=== PATIENT | male | born 1990 | race Caucasian/White ===

== ENCOUNTER 2016-10-15 21:27 | Emergency (ER) | payer BC, OTHER ==
[~2016-10-15] VITALS: Ht 175.3 cm; Wt 64.0 kg
[~2016-10-15 21:27] MED LIST: IBUP-232 PO; Z.0.NO CURRENT MEDS
[2016-10-15 21:29] VITALS: BP 120/76; PULSE 92; RESP 14; TEMP 97.7; O2SAT 97
[2016-10-15] MEDS ORDERED: SUBO8MIS SL (22:01)
[2016-10-15] MEDS ORDERED: CEPH-460 PO (22:26)
[2016-10-15] MEDS ORDERED: PERM5CRE TOPICAL (22:26)
[2016-10-15] MEDS ORDERED: MUPI2%T TOPICAL (22:26)
[2016-10-15] MEDS ORDERED: diphenhydrAMINE HCL 50 MG/ML VIAL IM ONE (22:30)
--- NOTE | 2016-10-15 22:32 | PD ---
HPI Chief Complaint: Psychiatric Symptoms Time Seen by Provider: 22:20 Travel History International Travel<30 days: No Contact w/Intl Traveler<30days: No Traveled to known affect area: No History of Present Illness HPI This is a 25-year-old male who presents for evaluation of a pruritic rash. He reports that 2 months ago he moved into an old house. He reports that over the course the past 1.5 weeks he has developed a pruritic rash. The pruritic rash primarily involves the extremities, seems to spare the neck, face, torso. He has been scratching at the rash. He reports that he has seen numerous "white bugs" inside of his house. He was also initially concerned that there may be a rat infestation in his house. He reports that an steel roller inspected the house today and found no rat's but said that there was some type of bug infestation. The Patient has no other complaints at this time. PFSH Past Medical History ADHD: No Cancer: No Cardiovascular Problems: No Diabetes: No Psychiatric: No Seizures: No Thyroid Disease: No Past Surgical History Other Surgery: No Social History Alcohol Use: Yes (occassionally) Tobacco Use: Yes (1ppd) Substance Use: Yes (marjuana; hx of meth; xanax) Allergies-Medications (Allergen,Severity, Reaction): Coded Allergies: No Known Allergies (Verified , 10/15/16) Reported Meds & Prescriptions Reported Meds & Active Scripts Active Bactroban Topical (Mupirocin) 2 % Cream 1 Applic TOPICAL BID 7 Days Keflex (Cephalexin) 500 Mg Cap 500 Mg PO Q8H 7 Days Permethrin Topical (Permethrin) 5% Cream 1 Applic TOPICAL ONCE Reported Suboxone Sublingual Film (Buprenorphine-Naloxone Sublingual Film) 8-2 Mg Film 1 Film SL DAILY Unique ID number required: Review of Systems General / Constitutional: No: Fever, Chills Skin: Positive Rash, Positive Itching Physical Exam Narrative GENERAL: Well-developed well-nourished male in no acute distress SKIN: Warm and dry. On the arms and legs the patient has excoriated papular lesions. There is mild erythema surrounding some of the lesions. There are no vesicles, no pustules, no intraoral lesions, no macules, no purpura, no petechiae. No abscess formation. HEAD: Atraumatic. Normocephalic. EYES: Pupils equal and round. No scleral icterus. No injection or drainage. ENT: No nasal bleeding or discharge. Mucous membranes pink and moist. NECK: Trachea midline. No JVD. CARDIOVASCULAR: Regular rate and rhythm. No murmur appreciated. RESPIRATORY: No accessory muscle use. Clear to auscultation. Breath sounds equal bilaterally. NEUROLOGICAL: Awake and alert. No obvious cranial nerve deficits. Motor grossly within normal limits. Normal speech. PSYCHIATRIC: Appropriate mood and affect; insight and judgment normal. Data Data Last Documented VS Vital Signs Date Time Temp Pulse Resp B/P Pulse Ox O2 Delivery O2 Flow Rate FiO2 10/15/16 21:29 97.7 92 14 120/76 97 Room Air Orders Diphenhydramine Inj (Benadryl Inj) (10/15/16 22:30) MDM Medical Decision Making Medical Screen Exam Complete: Yes Emergency Medical Condition: Yes Medical Record Reviewed: Yes Differential Diagnosis Excoriated bug bites, allergic contact dermatitis, scabies, bed bugs, fleas, atopic dermatitis, cellulitis, folliculitis, viral exanthem Narrative Course 25-year-old male presents for evaluation of pruritic excoriated papular lesions primarily on the extremities, seems to spare the torso and face, for the past 1.5 weeks. Of note, he did move into a new residence, he describes it as an old house, 2 months ago. He describes an infestation of "white bugs." On examination he has excoriated papular lesions on the extremities. The plan is to treat the patient with permethrin cream for possible scabies infestation. He will also be given prescriptions for Keflex, Bactroban. Recommended over-the -counter antihistamines for itching. He is stable for discharge. Diagnosis Primary Impression: Pruritic rash Additional Instructions: Avoid scratching. Take Benadryl [id number] for itching. Do not drive, drink alcohol when taking Benadryl. Use the medications as prescribed. Have the steel roller treat the house infestation. Follow-up with primary care physician as needed. Return for any emergent medical conditions. Med/Other Pt SpecificInfo: Prescription(s) given Scripts Mupirocin Topical (Bactroban Topical)2 % Cream1 Applic TOPICAL BID 7 Days Ref 0 Prov:Ana Mitchell MD 10/15/16 Cephalexin (Keflex)500 Mg Tcs086 Mg PO Q8H 7 Days Ref 0 Prov:Ana Mitchell MD 10/15/16 Permethrin Topical 5% Cream1 Applic TOPICAL ONCE #1 TUBE Ref 1 Prov:Ana Mitchell MD 10/15/16 Disposition: 01 DISCHARGE HOME Condition: Stable Corwin Rinaldi Oct 15, 2016 22:32
== END 2016-10-15 23:07 | disposition home or self-care (01) ==
LOC: NEPA 21:27
DX: R21 Rash and other nonspecific skin eruption (principal); F17.210 Nicotine dependence, cigarettes, uncomplicated
CPT/HCPCS: 96372; 99283; J1200

== ENCOUNTER 2016-10-23 14:36 | Emergency (ER) | payer OTHER ==
[~2016-10-23] VITALS: Ht 175.3 cm; Wt 60.0 kg
[~2016-10-23 14:36] MED LIST changes: +CEPH-460 PO; -IBUP-232 PO; +MUPI2%T TOPICAL; +PERM5CRE TOPICAL; +SUBO8MIS SL; -Z.0.NO CURRENT MEDS
[2016-10-23 14:37] VITALS: BP 167/91; PULSE 71; RESP 18; TEMP 98; O2SAT 97
--- NOTE | 2016-10-23 15:44 | PD ---
HPI Chief Complaint: Skin Problem Time Seen by Provider: 15:23 Travel History International Travel<30 days: No Contact w/Intl Traveler<30days: No Traveled to known affect area: No History of Present Illness HPI 25-year-old male presents to the emergency department with concern that he thinks he has a cutaneous filariasis in his skin and it is getting close to his eyes. He was seen here about a week ago and was told he had scabies and was treated with the cream and antibiotics which he has used as prescribed. He had a area on his nose that he said he squeezed this morning and a large blue nematode came out of it and slithered across his face. He said it was very fast and then disappeared into another area of his skin on his right cheek. He says he can currently see another large blue nematode in an area to his left nostril that he doesn't want to squeeze until I can see it come out. He reports having a rat infestation in his house that brought mites also. He reports seeing mites in his hands and face and they migrate from area to area on his hands and face. The rash is itchy. He reports improvement in the rash since he was seen last. He denies fever, chills, nausea, vomiting. He has had a acquisition lead come out to his house and was told there were no mites seen and his house did not need to be treated. Patient denies illicit drug use. Reports tobacco use. Reports taking Suboxone twice daily. Denies allergies. Denies psychiatric history. Denies other significant past medical history. No other modifying factors or associated signs and symptoms. History Past Medical Histgory Medical History: Denies Significant Hx Hx Cancer: No Social History Alcohol Use: Yes (occassionally) Tobacco Use: Yes (1ppd) Allergies-Medications (Allergen,Severity, Reaction): Coded Allergies: No Known Allergies (Verified , 10/23/16) Reported Meds & Prescriptions Reported Meds & Active Scripts Active Bactroban Topical (Mupirocin) 2 % Cream 1 Applic TOPICAL BID 7 Days Keflex (Cephalexin) 500 Mg Cap 500 Mg PO Q8H 7 Days Permethrin Topical (Permethrin) 5% Cream 1 Applic TOPICAL ONCE Reported Suboxone Sublingual Film (Buprenorphine-Naloxone Sublingual Film) 8-2 Mg Film 1 Film SL DAILY Unique ID number required: Review of Systems Except as stated in HPI: all other systems reviewed are Neg Physical Exam Narrative GENERAL: Well-nourished, well-developed male patient, in no acute distress; afebrile, nontoxic-appearing SKIN: Warm and dry. Multiple scabbed lesions to face, bilateral upper extremities, and bilateral lower extremities that are without erythema, edema, drainage. No blue nematode noted to the left nostril when the area was squeezed ; the area is without erythema, edema, drainage, lesion. HEAD: Atraumatic. Normocephalic. EYES: Pupils equal and round at 5mm. No scleral icterus. No injection or drainage. ENT: Mucosa pink and moist. Airway patent. NECK: Trachea midline. CARDIOVASCULAR: Regular rate and rhythm. No murmur appreciated. RESPIRATORY: No accessory muscle use. Breath sounds clear and equal bilaterally. No retractions or tachypnea. GASTROINTESTINAL: Flat. MUSCULOSKELETAL: No obvious deformities. No clubbing. No cyanosis. No edema. NEUROLOGICAL: Awake and alert. Oriented 3. No obvious cranial nerve deficits. Motor grossly within normal limits. Normal speech. PSYCHIATRIC: Appropriate mood and affect; insight and judgment normal. Data Data Last Documented VS Vital Signs Date Time Temp Pulse Resp B/P Pulse Ox O2 Delivery O2 Flow Rate FiO2 10/23/16 14:37 98.0 71 18 167/91 97 Room Air [facility] Medical Screen Exam Complete: Yes Emergency Medical Condition: No Differential Diagnosis bedbugs, scabies, picking disorder, Delusional parasitosis Narrative Course 25-year-old male with a periodic rash to his face, bilateral upper and lower extremities. He was seen here on October 15and diagnosed with a periodic rash which was treated with permethrin cream and Keflex. The patient has been using as prescribed. The patient now is concerned that he has cutaneous filariasis and his skin and concern of blue nematodes that he is able to squeeze out of lesions from his face. Patient takes Suboxone daily. He denies illicit drug use. Denies psychiatric history. He is afebrile and in no acute distress. He denies fever, chills, nausea, vomiting. Reports improvement in the current rash. Instructed the patient to follow up with dermatology. Vital signs are stable and the patient is stable for outpatient follow-up and treatment. The patient has no urgent or emergent medical complaints. There is no emergent or urgent medical need at this time. I instructed the patient to follow up with their primary care provider. A medical screening exam was performed: At the time of evaluation the presenting medical condition was determined not to be of an emergent nature. The patient was given the option of receiving additional care, but declined. Patient was given options for additional community resources from which to obtain care. The Patient Has Been advised to seek medical attention for their presenting complaint. The patient has been advised to return to the ER at any time if an emergent condition develops. Primary Impression: Encounter for medical screening examination Condition: Stable Barbara Alonso [facility] Oct 23, 2016 15:43
== END 2016-10-23 15:35 | disposition left against medical advice (07) ==
LOC: NEPB 14:36
DX: R21 Rash and other nonspecific skin eruption (principal)
CPT/HCPCS: 99281

== ENCOUNTER 2016-12-07 12:11 | Emergency (ER) | payer OTHER ==
[~2016-12-07] VITALS: Ht 177.8 cm; Wt 57.0 kg
[2016-12-07 12:14] VITALS: BP 133/92; PULSE 89; TEMP 97.6; O2SAT 99
--- NOTE | 2016-12-07 14:03 | PD ---
HPI Chief Complaint: Skin Problem Time Seen by Provider: 14:01 Travel History International Travel<30 days: No Contact w/Intl Traveler<30days: No Traveled to known affect area: No History of Present Illness HPI 26-year-old male presents to the emergency department with complaint of nematodes in his nostrils and his eyes. He was seen a couple months ago for the same complaint and says his symptoms have persisted since he was seen last, here at [facility]. I saw this patient at the end of September for the same complaint. He says he can see the nematodes crawling in the sides of his eyes. He says he can remove the nematodes from both of his nostrils with tweezers because there are 100s of them. Last time he was here he was complaining of mites in his hands. He says he has stopped picking at his hands, as I told him to, and the scabs have healed over. He has no complaints and Mites at this time. His mother presents at the bedside also. His mother states she has also seen the nematodes that he pulls from his nostrils on bathroom counter. Patient admits to IV drug use within the last month. Reports marijuana use. He has not followed up outpatient. He does have a dermatology appointment December 24. Has tried [id number] topical medications with no relief of symptoms. He denies fever, chills, nausea, vomiting. Denies suicidal or homicidal ideations. Denies auditory or visual hallucinations. No known allergies. No other modifying factors or associated signs and symptoms. History Past Medical Histgory Hx Cancer: No Social History Alcohol Use: Yes (occassionally) Tobacco Use: Yes (1ppd) Allergies-Medications (Allergen,Severity, Reaction): Coded Allergies: No Known Allergies (Verified , 12/07/16) Reported Meds & Prescriptions Reported Meds & Active Scripts Active Bactroban Topical (Mupirocin) 2 % Cream 1 Applic TOPICAL BID 7 Days Keflex (Cephalexin) 500 Mg Cap 500 Mg PO Q8H 7 Days Permethrin Topical (Permethrin) 5% Cream 1 Applic TOPICAL ONCE Reported Suboxone Sublingual Film (Buprenorphine-Naloxone Sublingual Film) 8-2 Mg Film 1 Film SL DAILY Unique ID number required: Review of Systems Except as stated in HPI: all other systems reviewed are Neg Physical Exam Narrative GENERAL: Well-nourished, well-developed male patient, in no acute distress; afebrile, nontoxic-appearing SKIN: Warm and dry. Multiple scabbed lesions to face without erythema, edema, drainage. No nematodes or any other living organism noted to bilateral eyes or nostrils. Dorsal aspect of bilateral hands with multiple healed circular scars. HEAD: Atraumatic. Normocephalic. EYES: Pupils equal and round at 4 mm with brisk reaction. No scleral icterus. No injection or drainage. ENT: Mucosa pink and moist. No erythema or exudates. No uvular edema. No uvular , palatal, or tonsillar deviation. Airway patent. Nasal turbinates appear normal without nasal blood, purulent drainage or septal hematoma. NECK: Trachea midline. No lymphadenopathy. CARDIOVASCULAR: Regular rate and rhythm. No murmur appreciated. RESPIRATORY: No accessory muscle use. Breath sounds clear and equal bilaterally. No retractions or tachypnea. GASTROINTESTINAL: Abdomen soft, non-tender, nondistended. Positive bowel sounds. No hepato-splenomegaly, or palpable masses. No guarding. MUSCULOSKELETAL: No obvious deformities. No clubbing. No cyanosis. No edema. NEUROLOGICAL: Awake and alert. Oriented 3. No obvious cranial nerve deficits. Motor grossly within normal limits. Normal speech. PSYCHIATRIC: Appropriate mood. Data Data Last Documented VS Vital Signs Date Time Temp Pulse Resp B/P Pulse Ox O2 Delivery O2 Flow Rate FiO2 12/07/16 12:14 97.6 89 133/92 99 MDM Medical Screen Exam Complete: Yes Emergency Medical Condition: No Differential Diagnosis Delusional parasitosis, picking disorder, scabies, psychosis Narrative Course This is a 26-year-old male that I thought the end of September for a similar complaint. He is complaining of nematodes in his eyes and coming out of his nostrils. Again there is nothing seen on physical exam. Physical exam is unremarkable. The patient is admitted IV drug use and marijuana use. He denies suicidal or homicidal ideations. Denies hallucinations. 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 I recommended the patient to follow-up with psychiatry outpatient, and to follow up with his scheduled dermatology appointment December 24. The patient and his mother both verbalized understanding and agreement with treatment plan. Vital signs are stable and the patient is stable for outpatient follow-up and treatment. The patient has no urgent or emergent medical complaints. There is no emergent or urgent medical need at this time. I instructed the patient to follow up with their primary care provider. A medical screening exam was performed: At the time of evaluation the presenting medical condition was determined not to be of an emergent nature. The patient was given the option of receiving additional care, but declined. Patient was given options for additional community resources from which to obtain care. The Patient Has Been advised to seek medical attention for their presenting complaint. The patient has been advised to return to the ER at any time if an emergent condition develops. Primary Impression: Encounter for medical screening examination Condition: Stable Barbara Alonso Dec 07, 2016 14:03
== END 2016-12-07 14:18 | disposition left against medical advice (07) ==
LOC: NEPB 12:11
DX: F22 Delusional disorders (principal); F12.20 Cannabis dependence, uncomplicated; F17.210 Nicotine dependence, cigarettes, uncomplicated
CPT/HCPCS: 99281

== ENCOUNTER 2016-12-07 21:28 | Emergency (ER) | payer OTHER ==
[~2016-12-07] VITALS: Ht 175.3 cm; Wt 56.0 kg
[2016-12-07 21:30] VITALS: BP 135/84; PULSE 88; RESP 16; TEMP 97.7; O2SAT 99
--- NOTE | 2016-12-07 22:27 | PD ---
HPI Chief Complaint: Foreign Body Time Seen by Provider: 22:00 Travel History International Travel<30 days: No Contact w/Intl Traveler<30days: No Traveled to known affect area: No History of Present Illness HPI Patient comes into the emergency for evaluation of possible foreign body in his naris. Patient states he was seen here earlier today for same was told there was nothing to be seen. Patient states shortly after leaving he saw something come out of his nose and took a picture of it. Patient denies any pain with this, fevers, nausea, vomiting, or headaches. Patient states he is being treated by a hospital intern for unknown parasite. History Past Medical Histgory Hx Cancer: No Social History Alcohol Use: Yes (occassionally) Tobacco Use: Yes (1ppd) Allergies-Medications (Allergen,Severity, Reaction): Coded Allergies: No Known Allergies (Verified , 12/07/16) Reported Meds & Prescriptions Reported Meds & Active Scripts Active Bactroban Topical (Mupirocin) 2 % Cream 1 Applic TOPICAL BID 7 Days Keflex (Cephalexin) 500 Mg Cap 500 Mg PO Q8H 7 Days Permethrin Topical (Permethrin) 5% Cream 1 Applic TOPICAL ONCE Reported Suboxone Sublingual Film (Buprenorphine-Naloxone Sublingual Film) 8-2 Mg Film 1 Film SL DAILY Unique ID number required: Review of Systems Except as stated in HPI: all other systems reviewed are Neg Physical Exam Narrative GENERAL: Well-developed, well nourished, in no acute distress, and non-ill appearing. SKIN: Warm and dry. HEAD: Atraumatic. Normocephalic. EYES: Pupils equal and round. EOMI. No scleral icterus. No injection or drainage. ENT: No nasal bleeding or discharge. Mucous membranes pink and moist. Bilateral ear canals was examined using a nasal speculum with visualization of normal sinus anatomy. No foreign body appreciated. NECK: Trachea midline. Supple. No nuclear rigidity. RESPIRATORY: No accessory muscle use. No respiratory distress. MUSCULOSKELETAL: No obvious deformities. No clubbing. No cyanosis. No edema. Full range of motion. NEUROLOGICAL: Awake and alert. No obvious cranial nerve deficits. Motor grossly within normal limits. Normal speech. PSYCHIATRIC: Appropriate mood and affect; insight and judgment normal. Data Data Last Documented VS Vital Signs Date Time Temp Pulse Resp B/P Pulse Ox O2 Delivery O2 Flow Rate FiO2 12/07/16 21:30 97.7 88 16 135/84 99 MDM Medical Screen Exam Complete: Yes Emergency Medical Condition: No Narrative Course Follow-up patient took of his nose when he thought something was coming out of his nose appears normal sinus bogginess. History and physical exam findings are not consistent with an emergent medical condition. He was given the option of receiving additional care, but has declined. Therefore the appropriate counseling recommendations were discussed with the patient and he was instructed to follow-up with his primary care physician as soon as possible for reevaluation. Patient was also informed of community resources from which he can obtain additional care. He is agreeable and verbalizes an understanding of the proposed plan. The patient states he will immediately return to the emergency department if his current complaints do not improve, new symptoms arise, or emergent condition develops. Patient ambulated out of the emergency department without difficulty. Primary Impression: Encounter for medical screening examination Disposition: [facility]-ED USE ONLY Condition: Choco Koenig Dec 07, 2016 22:27
== END 2016-12-07 22:38 | disposition left against medical advice (07) ==
LOC: NEPB 21:28
DX: Z76.89 Persons encountering health services in other specified circumstances (principal)
CPT/HCPCS: 99281

== ENCOUNTER 2017-08-03 09:01 | Observation (INO) | payer SELFPAY ==
[~2017-08-03] VITALS: Ht 177.8 cm; Wt 60.0 kg
[2017-08-03] VITALS (13 sets, daily range): BP systolic 97–156; BP diastolic 55–79; PULSE 64–88; RESP 16–18; TEMP 98.1–98.7; O2SAT 98–99
[2017-08-03] MEDS ORDERED: IOHEXOL 350 MG/ML 10 ML VIAL (for RAD DIAG) IVCONTRAST ONE (09:02)
[2017-08-03] MEDS ORDERED: SODIUM CHLOR 0.9% 1000 ML INJ 1,000 ML IV ONE (09:15)
[2017-08-03] MEDS ORDERED: SODIUM CHLORIDE 0.9% FLUSH 10 ML FLUSH IVF PRN (09:15)
[2017-08-03] MEDS ORDERED: methylPREDNISolone SOD SUCC 125 MG/2 ML VIAL IV PUSH ONE (09:15)
--- NOTE | 2017-08-03 09:21 | PD ---
HPI Chief Complaint: GI Complaint Time Seen by Provider: 09:08 Travel History International Travel<30 days: No Contact w/Intl Traveler<30days: No Traveled to known affect area: No History of Present Illness HPI Patient is a 26-year-old male with history of hepatitis C who presents to emergency room with multiple complaints. Patient reports that since yesterday, he has not been feeling well. Patient reports that he has a productive cough, congestion, reports that he was able to go to sleep last night but woke up feeling nauseous and ended up vomiting multiple times. Patient reports that he has been having subjective fevers and chills, reports that he has had increased chest congestion, reports shortness of breath and chest pain which is sharp and stabbing in nature and exacerbated with deep inspiration. Patient denies any sick contacts, denies any recent travels or trips. Patient does endorse that he is a smoker, he also is an IV drug abuser, reports that he last used IV heroin this morning. Patient last used cocaine 2 days ago. PFSH Past Medical History ADHD: No Cancer: No Cardiovascular Problems: No Diabetes: No Hepatitis: Yes (c) Psychiatric: No Immunizations Current: Yes Seizures: No Thyroid Disease: No Tetanus Vaccination: < 5 Years Past Surgical History Surgical History: No Previous Surgery Other Surgery: No Social History Alcohol Use: Yes (occassionally) Tobacco Use: Yes (1ppd) Substance Use: Yes (heroin this am) Allergies-Medications (Allergen,Severity, Reaction): Coded Allergies: No Known Allergies (Verified Adverse Reaction, Unknown, 08/03/17) Reported Meds & Prescriptions Reported Meds & Active Scripts Active Review of Systems General / Constitutional: Positive: Fever, Chills Eyes: No: Visual changes HENT: No: Headaches, Sore Throat, Neck Pain, Masses Cardiovascular: No: Chest Pain or Discomfort, Tachycardia, Syncope, Dyspnea on exertion Respiratory: Positive: Cough, Shortness of Breath Gastrointestinal: Positive: Nausea, Vomiting, Abdominal Pain Genitourinary: No: Dysuria Musculoskeletal: No: Pain Skin: No Rash Neurologic: No: Weakness, Headache Psychiatric: No: Depression Endocrine: No: Polydipsia Hematologic/Lymphatic: No: Easy Bruising Physical Exam Narrative GENERAL: Mild distress SKIN: Focused skin assessment warm/dry. HEAD: Atraumatic. Normocephalic. EYES: Pupils equal and round. No scleral icterus. No injection or drainage. ENT: No nasal bleeding or discharge. Mucous membranes pink and moist. NECK: Trachea midline. No JVD. CARDIOVASCULAR: Regular rate and rhythm. No murmur appreciated. RESPIRATORY: No accessory muscle use. Clear to auscultation. Breath sounds equal bilaterally. GASTROINTESTINAL: Abdomen soft, non-tender, nondistended. Hepatic and splenic margins not palpable. MUSCULOSKELETAL: No obvious deformities. No clubbing. No cyanosis. No edema. NEUROLOGICAL: Awake and alert. No obvious cranial nerve deficits. Motor grossly within normal limits. Normal speech. CN 2-12 grossly intact with no neurovascular deficits PSYCHIATRIC: Appropriate mood and affect; insight and judgment normal. Data Data Last Documented VS Vital Signs Date Time Temp Pulse Resp B/P (MAP) Pulse Ox O2 Delivery O2 Flow Rate FiO2 08/03/17 11:42 69 18 109/55 (73) 99 Nasal Cannula 2.00 08/03/17 09:02 98.7 Orders Orders Electrocardiogram (08/03/17 09:12) Complete Blood Count With Diff (08/03/17 09:12) Comprehensive Metabolic Panel (08/03/17 09:12) Influenzae A/B Antigen (08/03/17 09:12) Chest, Single Ap (08/03/17 09:12) Ecg Monitoring (08/03/17 09:12) Iv Access Insert/Monitor (08/03/17 09:12) Oximetry (08/03/17 09:12) Sodium Chloride 0.9% Flush (Ns Flush) (08/03/17 09:15) Ckmb (Isoenzyme) Profile (08/03/17 09:12) D-Dimer (08/03/17 09:12) Prothrombin Time / Inr (Pt) (08/03/17 09:12) Act Partial Throm Time (Ptt) (08/03/17 09:12) Troponin I (08/03/17 09:12) Lipase (08/03/17 09:12) Methylprednisolone So Succ Inj (Solumedr (08/03/17 09:15) Albuterol-Ipratropium Neb (Duoneb Neb) (08/03/17 09:15) Sodium Chlor 0.9% 1000 Ml Inj (Ns 1000 M (08/03/17 09:15) Ondansetron Inj (Zofran Inj) (08/03/17 09:30) Ketorolac Inj (Toradol Inj) (08/03/17 09:30) Ct Pulmonary Angiogram (08/03/17 10:30) CKMB (08/03/17 09:20) CKMB% (08/03/17 09:20) Drug Screen, Random Urine (08/03/17 11:39) Electrocardiogram (08/03/17 ) Iohexol 350 Inj (Omnipaque 350 Inj) (08/03/17 09:02) Consult Cardiology (08/03/17 ) Echo 2d Comp With Doppler (08/03/17 ) (Hub Use Only)Inp Phy Cons/Ref (08/03/17 ) Ckmb (Isoenzyme) Profile (08/03/17 12:15) Troponin I (08/03/17 12:15) Heparin Infusion DESTIN.Q1H (08/03/17 12:16) Heparin-D5w 25,000 U/250 Ml (Heparin-D5w (08/03/17 12:30) Occult Blood (Hemoccult) Stool (08/03/17 12:16) Aspirin Chew (Aspirin Chew) (08/03/17 12:30) Admit Order (Ed Use Only) (08/03/17 12:49) Labs Laboratory Tests Test 08/03/17 09:20 White Blood Count 10.1 TH/MM3 Red Blood Count 4.88 MIL/MM3 Hemoglobin 14.6 GM/DL Hematocrit 43.3 % Mean Corpuscular Volume 88.7 FL Mean Corpuscular Hemoglobin 30.0 PG Mean Corpuscular Hemoglobin Concent 33.8 % Red Cell Distribution Width 13.0 % Platelet Count 167 TH/MM3 Mean Platelet Volume 7.1 FL Neutrophils (%) (Auto) 61.0 % Lymphocytes (%) (Auto) 23.2 % Monocytes (%) (Auto) 14.3 % Eosinophils (%) (Auto) 0.9 % Basophils (%) (Auto) 0.6 % Neutrophils # (Auto) 6.1 TH/MM3 Lymphocytes # (Auto) 2.3 TH/MM3 Monocytes # (Auto) 1.4 TH/MM3 Eosinophils # (Auto) 0.1 TH/MM3 Basophils # (Auto) 0.1 TH/MM3 CBC Comment DIFF FINAL Differential Comment Prothrombin Time 10.3 SEC Prothromb Time International Ratio 0.9 RATIO Activated Partial Thromboplast Time 27.4 SEC D-Dimer Quantitative (PE/DVT) 0.51 MG/L FEU Blood Urea Nitrogen 6 MG/DL Creatinine 0.85 MG/DL Random Glucose 114 MG/DL Total Protein 7.7 GM/DL Albumin 3.9 GM/DL Calcium Level 9.0 MG/DL Alkaline Phosphatase 86 U/L Aspartate Amino Transf (AST/SGOT) 53 U/L Alanine Aminotransferase (ALT/SGPT) 51 U/L Total Bilirubin 0.3 MG/DL Sodium Level 135 MEQ/L Potassium Level 4.0 MEQ/L Chloride Level 99 MEQ/L Carbon Dioxide Level 27.9 MEQ/L Anion Gap 8 MEQ/L Estimat Glomerular Filtration Rate 108 ML/MIN Total Creatine Kinase 396 U/L Creatine Kinase MB 10.8 NG/ML Creatine Kinase MB % 2.7 % Troponin I 4.22 NG/ML Lipase 111 U/L MDM Medical Decision Making Medical Screen Exam Complete: Yes Emergency Medical Condition: Yes Medical Record Reviewed: Yes Interpretation(s) Vital Signs Date Time Temp Pulse Resp B/P (MAP) Pulse Ox O2 Delivery O2 Flow Rate FiO2 08/03/17 09:02 98.7 65 18 156/79 (940) 98 Differential Diagnosis Pneumonia, influenza, electrolyte abnormality, gastritis, gastroenteritis, PE, gastritis Narrative Course 26-year-old male who presents to emergency room for evaluation of cough, congestion, URI along with nausea, vomiting and abdominal pain since last night. During the course of the patients emergency department visit, the patients history, examination, and differential diagnosis were reviewed with the patient. The patient was placed on a monitor worker with oximetry and frequent blood pressure monitoring. The patient had a 20-gauge IV access obtained and blood work sent for analysis. The patient was initially provided IV fluids, IV Solu-Medrol, nebulizer treatments as well as Zofran, and IV toradol The patients laboratory studies were reviewed and remarkable for CBC & BMP Diagram 08/03/17 09:20 Total Protein 7.7, Albumin 3.9, Calcium Level 9.0, Alkaline Phosphatase 86, Aspartate Amino Transf (AST/SGOT) 53 H, Alanine Aminotransferase (ALT/SGPT) 51, Total Bilirubin 0.3 TROP 4.22 EKG: NSR at 58bpm, there is lateral ST seg elevation on EKG - most likely early repolarization Given positive trop of 4.22 call made to cardiology to review case. Patient did have a PE chest study given his pleuritic symptoms as well as a positive d- dimer. PE Chest pending. Patient is currently chest pain free at this time. Repeat EKG at 1149: NSR at 68bpm, qt/qtc: 402/420, st seg elevation I, avL, V1- V ekg characteristic of early repolarization Radiology studies were reviewed and remarkable for: Last Impressions Chest X-Ray 08/03/17911 Signed Impressions: Service Date/Time: Thursday, August 03, 2017 09:32 - CONCLUSION: No acute disease. Néstor Luo MD Case reviewed with Dr. Menchaca, request stat cardiac echo as well and would like patient treated with heparin and ASA. Patient with no chest pain at this time - no intervention at this time. Last Impressions CT Angiography 08/03/17 1030 Signed Impressions: Service Date/Time: Thursday, August 03, 2017 11:32 - CONCLUSION: 1. No PE is identified. 2. There is atelectasis in both lower lobes. Otherwise, no abnormality is identified to explain the clinical symptoms. Néstor Jennings MD Chest X-Ray 08/03/17911 Signed Impressions: Service Date/Time: Thursday, August 03, 2017 09:32 - CONCLUSION: No acute disease. Néstor Luo MD CT of chest with no PE, plan to administer IV heparin as well as an aspirin. Case reviewed with FP residents, will admit to Dr. Melgar Critical Care Narrative Aggregate critical care time was 30 minutes. Time to perform other separately billable procedures was not included in the critical care time. My time did not include minutes spent treating any other patients simultaneously or on activities that did not directly contribute to the patient's treatment. The services I provided to this patient were to treat and/or prevent clinically significant deterioration that could result in: , decompensation, deterioration I provided critical care services requiring my management, as noted below: Chart data review, documentation time, medication orders and management, vital sign assessments/reviewing monitor data, ordering and reviewing lab tests, ordering and interpreting/reviewing x-rays and diagnostic studies, care of the patient and discussion of the patient with the admitting physicians. Diagnosis Primary Impression: NSTEMI (non-ST elevation myocardial infarction) Additional Impression: Drug abuse and dependence Arguelles,Luz L DO Aug 03, 2017 09:21
[2017-08-03] MEDS ORDERED: KETOROLAC TROMETHAMINE 30 MG/ML (IVP) VIAL IV PUSH ONE (09:30)
[2017-08-03] MEDS ORDERED: ONDANSETRON HCL 4 MG/2 ML VIAL IVP ONE (09:30)
--- NOTE | 2017-08-03 09:38 | RADRPT ---
EXAM DATE/TIME: 08/03/2017 09:32 [facility] COMPARISON: No previous studies available for comparison. INDICATIONS : Chest pain and shortness of breath since lastnight. MEDICAL HISTORY : None. SURGICAL HISTORY : None. ENCOUNTER: Initial ACUITY: 1 day PAIN SCORE: 8/10 LOCATION: Bilateral chest FINDINGS: A single view of the chest demonstrates the lungs to be symmetrically aerated without evidence of mas s, infiltrate or effusion. The cardiomediastinal contours are unremarkable. Right convex thoracic sc oliosis.. CONCLUSION: No acute disease. Néstor Luo MD on August 03, 2017 at 9:36 Board Certified Radiologist. This report was verified electronically.
[2017-08-03] MEDS: RESP: ALBUTEROL 2.5 MG/IPRATROPIUM 0.5 MG NEB (SCH) INH (09:47)
[2017-08-03 09:52] LABS: AUTOMATED NEUTROPHIL # 6.1 TH/MM3 (1.8-7.7); BASOPHIL # 0.1 TH/MM3 (0-0.2); BASOPHIL % 0.6 % (0.0-2.0); EOSINOPHIL # 0.1 TH/MM3 (0-0.4); EOSINOPHIL % 0.9 % (0.0-4.0); HEMATOCRIT 43.3 % (39.0-51.0); HEMO FLAGS DIFF FINAL; LYMPH % 23.2 % (9.0-44.0); LYMPHOCYTE # 2.3 TH/MM3 (1.0-4.8); MEAN CELL VOLUME 88.7 FL (80.0-100.0); MEAN CORPUSCULAR HGB CONC 33.8 % (32.0-36.0); MONO % 14.3 % (0.0-8.0); PLATELET COUNT 167 TH/MM3 (150-450); RED BLOOD COUNT 4.88 MIL/MM3 (4.50-5.90); WHITE BLOOD COUNT 10.1 TH/MM3 (4.0-11.0)
[2017-08-03 10:08] LABS: APTT (PATIENT) 27.4 SEC (24.3-30.1); INTERNATIONAL NORMALIZED RATIO 0.9 RATIO; PROTHROMBIN TIME - PATIENT 10.3 SEC (9.8-11.6)
[2017-08-03 10:22] LABS: ANION GAP 8 MEQ/L (5-15); AST (GOT) 53 U/L (15-37); BICARBONATE 27.9 MEQ/L (21.0-32.0); BLOOD UREA NITROGEN 6 MG/DL (7-18); CHLORIDE 99 MEQ/L (98-107); GLOMERULAR FILTRATION RATE 108 ML/MIN (>89); SODIUM (NA) 135 MEQ/L (136-145)
[2017-08-03 11:07] LABS: ALKALINE PHOSPHATASE 86 U/L (45-117); ALT (GPT) 51 U/L (12-78); CREATINE KINASE 396 U/L (39-308); TOTAL BILIRUBIN ADULT 0.3 MG/DL (0.2-1.0)
[2017-08-03 11:47] LABS: CKMB 10.8 NG/ML (0.5-3.6)
--- NOTE | 2017-08-03 12:10 | RADRPT ---
EXAM DATE/TIME: 08/03/2017 11:32 [facility] COMPARISON: No previous studies available for comparison. INDICATIONS : Shortness of breath and chest pains. IV CONTRAST: 50 cc Omnipaque 350 (iohexol) IV RADIATION DOSE: 22.62 CTDIvol (mGy) MEDICAL HISTORY : Hepatitis C. SURGICAL HISTORY : None. ENCOUNTER: Initial ACUITY: 1 day PAIN SCALE: 8/10 LOCATION: chest TECHNIQUE: Volumetric scanning of the chest was performed using a pulmonary embolism protocol MIP images were re constructed. Using automated exposure control and adjustment of the mA and/or kV according to patien t size, radiation dose was kept as low as reasonably achievable to obtain optimal diagnostic quality images. DICOM format image data is available electronically for review and comparison. Follow-up recommendations for detected pulmonary nodules are based at a minimum on nodule size and pa tient risk factors according to Fleischner Society Guidelines. FINDINGS: PULMONARY ARTERIES: No filling defects are seen in the pulmonary arteries through the segmental level. LUNGS: There is no consolidation or pneumothorax . No concerning pulmonary nodule is visualized. There is a telectasis within both lower lobes. PLEURAE: There is no pleural thickening or pleural effusion. MEDIASTINUM: There is good visualization of the great vessels of the middle mediastinum. No evidence of mediastin al or hilar adenopathy/mass. MUSCULOSKELETAL: No acute abnormality is identified. MISCELLANEOUS: The visualized upper abdominal organs demonstrate no acute abnormality. CONCLUSION: 1. No PE is identified. 2. There is atelectasis in both lower lobes. Otherwise, no abnormality is identified to explain the c linical symptoms. Néstor Jennings MD on August 03, 2017 at 12:06 Board Certified Radiologist. This report was verified electronically.
[2017-08-03] MEDS ORDERED: ASPIRIN 81 MG CHEW TAB CHEW ONE (12:30)
--- NOTE | 2017-08-03 12:41 | HHI.HP ---
HPI Service Family Medicine Primary Care Physician No Primary Care Physician Admission Diagnosis Diagnoses: International Travel<30 Days: No Contact w/Intl Traveler<30days: No Known Affected Area: No History of Present Illness Patient is a 26-year-old Male with PMHx of Hepatitis C presented to ED with complaint CP,SOB, and BABCOCK that started last night. Pt reports non-radiating pain in multiple areas but worst pain in mid-sternal area. Other location of pain includes: mid back pain and BL in front of chest. Pt rated pain as 8/10. He reports taking heroin yesterday and today for the CP without improvement. Pt also stated he developed nausea and vomiting x2 this morning. Denies fever and palpitations. Currently patient states CP has resolved. Pt also complained of congestion and body aches that also began last night. Pt denies any similar sxs in the past. (Cate Last MD, R1) Review of Systems Constitutional: DENIES: Fever, Change in appetite Cardiovascular: COMPLAINS OF: Chest pain, DENIES: Palpitations Gastrointestinal: COMPLAINS OF: Nausea, Vomiting, DENIES: Abdominal pain Musculoskeletal: COMPLAINS OF: Back pain (as per HPI) Neurologic: COMPLAINS OF: Headache (Cate Last MD, R1) Past Family Social History Past Medical History Hepatitis C- not treated Past Surgical History Fracture index finger in Left hand, required 3 pins (Cate Last MD, R1) Allergies: Coded Allergies: No Known Allergies (Verified Allergy, Unknown, 08/03/17) Family History mom- pancreatitis father- healthy 2 half brothers- healthy Social History -Pt currently lives with girlfriend in a motel -Not employed, he loss his job and home at the end of 2016 -smokes 1/2 pack a day for 12 yrs - Drinks 6-12oz pack beer a day -Illicit drug use heroin- yesterday and today, twice 3 times a day crack cocaine 2-3 days ago, once a wk -HIV 1 screening completed 1 1/2 yr ago- negative -Previously treated in methadone clinic in the past (Cate Last MD, R1) Physical Exam Vital Signs Vital Signs Date Time Temp Pulse Resp B/P (MAP) Pulse Ox O2 Delivery O2 Flow Rate FiO2 08/03/17 11:42 69 18 109/55 (73) 99 Nasal Cannula 2.00 08/03/17 09:18 99 08/03/17 09:02 98.7 65 18 156/79 (329) 98 Physical Exam GENERAL: This is a well-nourished, well-developed patient, in no apparent distress. SKIN: No rashes, ecchymoses or lesions. Cool and dry. HEAD: Atraumatic. Normocephalic. No temporal or scalp tenderness. EYES: Pupils equal round and reactive. Extraocular motions intact. No scleral icterus. No injection or drainage. ENT: Nose without bleeding, purulent drainage or septal hematoma. Throat slight erythema, small vesicle on right side of oropharynx. No tonsillar hypertrophy or exudate. Uvula midline. Airway patent. NECK: Trachea midline. No JVD or lymphadenopathy. Supple, nontender, no meningeal signs. CARDIOVASCULAR: Normal S1 and S2. Regular rate and rhythm without murmurs, gallops, or rubs. RESPIRATORY: Clear to auscultation. Breath sounds equal bilaterally. No wheezes , rales, or rhonchi. GASTROINTESTINAL: Abdomen soft, non-tender, nondistended. No hepato-splenomegaly , or palpable masses. No guarding. MUSCULOSKELETAL: Extremities without clubbing, cyanosis, or edema. No joint tenderness, effusion, or edema noted. No calf tenderness. Negative Homans sign bilaterally. NEUROLOGICAL: Awake and alert. Cranial nerves II through XII intact. Motor and sensory grossly within normal limits. Five out of 5 muscle strength in all muscle groups. Normal speech. Laboratory Laboratory Tests Test 08/03/17 09:20 White Blood Count 10.1 Red Blood Count 4.88 Hemoglobin 14.6 Hematocrit 43.3 Mean Corpuscular Volume 88.7 Mean Corpuscular Hemoglobin 30.0 Mean Corpuscular Hemoglobin Concent 33.8 Red Cell Distribution Width 13.0 Platelet Count 167 Mean Platelet Volume 7.1 Neutrophils (%) (Auto) 61.0 Lymphocytes (%) (Auto) 23.2 Monocytes (%) (Auto) 14.3 Eosinophils (%) (Auto) 0.9 Basophils (%) (Auto) 0.6 Neutrophils # (Auto) 6.1 Lymphocytes # (Auto) 2.3 Monocytes # (Auto) 1.4 Eosinophils # (Auto) 0.1 Basophils # (Auto) 0.1 CBC Comment DIFF FINAL Differential Comment Prothrombin Time 10.3 Prothromb Time International Ratio 0.9 Activated Partial Thromboplast Time 27.4 D-Dimer Quantitative (PE/DVT) 0.51 Blood Urea Nitrogen 6 Creatinine 0.85 Random Glucose 114 Total Protein 7.7 Albumin 3.9 Calcium Level 9.0 Alkaline Phosphatase 86 Aspartate Amino Transf (AST/SGOT) 53 Alanine Aminotransferase (ALT/SGPT) 51 Total Bilirubin 0.3 Sodium Level 135 Potassium Level 4.0 Chloride Level 99 Carbon Dioxide Level 27.9 Anion Gap 8 Estimat Glomerular Filtration Rate 108 Total Creatine Kinase 396 Creatine Kinase MB 10.8 Creatine Kinase MB % 2.7 Troponin I 4.22 Lipase 111 Date/Time Source Procedure Growth Status 08/03/17 09:50 Nasal Aspirate Influenza Types A,B Antigen ([facility]) - Final NEGATIVE FOR FLU A AND B ANTIGEN.... Complete (Cate Last MD, R1) Result Diagram: 08/03/1791908/03/[address] Angiography 08/03/17 1030 Signed Impressions: Service Date/Time: Thursday, August 03, 2017 11:32 - CONCLUSION: 1. No PE is identified. 2. There is atelectasis in both lower lobes. Otherwise, no abnormality is identified to explain the clinical symptoms. Néstor Jennings MD Chest X-Ray 08/03/17911 Signed Impressions: Service Date/Time: Thursday, August 03, 2017 09:32 - CONCLUSION: No acute disease. Néstor Luo MD (Cate Last MD, R1) Septic Shock Reassessment Heart: Regular rate and rhythm Lungs: Clear Skin: Warm, Dry Peripheral Pulses: Bounding Right Radial Bounding Left Radial Bounding Right Popliteal Bounding Left Popliteal Bounding Right Dorsalis Pedis Bounding Left Dorsalis Pedis Bounding Right Posterior Tibial Bounding Left Posterior Tibial Capillary Refill: <2 seconds (Cate Last MD, R1) Caprini VTE Risk Assessment Caprini VTE Risk Assessment: No/Low Risk (score <= 1) Caprini Risk Assessment Model Point Value = 1 Point Value = 2 Point Value = 3 Point Value = 5 Age 41-60 Minor surgery BMI > 25 kg/m2 Swollen legs Varicose veins or History of unexplained or recurrent spontaneous Oral contraceptives or hormone replacement Sepsis (< 1 month) Serious lung disease, including pneumonia (< 1 month) Abnormal pulmonary function Acute myocardial infarction Congestive heart failure (< 1 month) History of inflammatory bowel disease Medical patient at bed rest Age 61-74 Arthroscopic surgery Major open surgery (> 45 min) Laparoscopic surgery (> 45 min) Malignancy Confined to bed (> 72 hours) Immobilizing plaster cast Central venous access Age >= 75 History of VTE Family history of VTE Factor V Leiden Prothrombin [id number] Lupus anticoagulant Anticardiolipin antibodies Elevated serum homocysteine Heparin-induced thrombocytopenia Other congenital or acquired thrombophilia Stroke (< 1 month) Elective arthroplasty Hip, pelvis, or leg fracture Acute spinal cord injury (< 1 month) Prophylaxis Regimen Total Risk Factor Score Risk Level Prophylaxis Regimen 0-1 Low Early ambulation 2 Moderate Order ONE of the following: *Sequential Compression Device (SCD) *Heparin 5000 units SQ BID 3-4 Higher Order ONE of the following medications: *Heparin 5000 units SQ TID *Enoxaparin/Lovenox 40 mg SQ daily (WT < 150 kg, CrCl > 30 mL/min) *Enoxaparin/Lovenox 30 mg SQ daily (WT < 150 kg, CrCl > 10-29 mL/min) *Enoxaparin/Lovenox 30 mg SQ BID (WT < 150 kg, CrCl > 30 mL/min) AND/OR *Sequential Compression Device (SCD) 5 or more Highest Order ONE of the following medications: *Heparin 5000 units SQ TID (Preferred with Epidurals) *Enoxaparin/Lovenox 40 mg SQ daily (WT < 150 kg, CrCl > 30 mL/min) *Enoxaparin/Lovenox 30 mg SQ daily (WT < 150 kg, CrCl > 10-29 mL/min) *Enoxaparin/Lovenox 30 mg SQ BID (WT < 150 kg, CrCl > 30 mL/min) AND *Sequential Compression Device (SCD) (Cate Last MD, R1) Assessment and Plan Assessment and Plan Patient is a 26-year-old Male with PMHx of Hepatitis C presented to ED with complaint CP,SOB, and BABCOCK that started last night. Pt admitted for management of cocaine induced chest pain. Pt currently stable, denies CP. VS WNL. Code Status Full code Discussed Condition With sdw Dr. Thompson and Dr. Rodriguez (Cate Last MD, R1) Attending Attestation Patient seen and examined. Case reviewed and discussed with the resident team. Agree with plan of care as discussed with me and documented in the resident note. pt seen in ED on admission. he was pain free on his heparin drip (Linnette Thompson MD) Problem List: (1) Cocaine-induced vascular disorder ICD Codes: F14.988 - Cocaine use, unspecified with other cocaine-induced disorder; I99.9 - Unspecified disorder of circulatory system Plan: Pt found to have troponin of 4.22 on admission. Normal CBC, afebrile. CP now resolved. -Pt with hx of heroin and crack cocaine use -Cardiology consulted, recommendations appreciated. -f/u serial EKG, troponin and cardiac enzymes -f/u Echo, cmp -Pt placed on tele -c/w heparin drip, tylenol, toradol, zofran, ciwa protocol -continue to monitor vs (2) Nutrition, metabolism, and development symptoms ICD Codes: R63.8 - Other symptoms and signs concerning food and fluid intake Plan: Fluids: currently not indicated Electrolytes: replete as needed Nutrition: NPO, will transition to regular diet depending on cardiology's recommendation for further test DVT ppx: SCDs (Cate Last MD, R1) Cate Last MD, R1 Aug 03, 2017 12:41 Linnette Thompson MD Aug 04, 2017 14:14
--- NOTE | 2017-08-03 12:49 | EKG ---
Date Performed: 08/03/2017 Time Performed: 09:36:23 PTAGE: 26 years EKG: ATRIAL FIBRILLATION WITH SLOW VENTRICULAR RESPONSE LEFT ANTERIOR FASCICULAR BLOCK ST ELEVAT ION, CONSIDER LATERAL INJURY ACUTE NV INTERPRETATION BASED ON A DEFAULT AGE OF 40 YEARS NO PREVIOUS TRACING DOCTOR: Jose Salvador Interpretating Date/Time 08/03/2017 12:46:42
[2017-08-03] MEDS ORDERED: ACETAMINOPHEN 325 MG TAB PO PRN (13:15)
[2017-08-03] MEDS ORDERED: SENNOSIDES 8.6 MG TAB PO PRN (13:15)
[2017-08-03] MEDS ORDERED: NALOXONE HCL 0.4 MG/ML AMP IV PUSH PRN (13:15)
[2017-08-03] MEDS ORDERED: SODIUM CHLORIDE 0.9% FLUSH 10 ML FLUSH IV FLUSH PRN (13:15)
[2017-08-03] MEDS ORDERED: ONDANSETRON HCL 4 MG/2 ML VIAL IVP PRN (13:15)
[2017-08-03] MEDS ORDERED: BISACODYL 10 MG SUPP RECTAL PRN (13:15)
[2017-08-03] MEDS ORDERED: MAGNESIUM HYDROXIDE SUSP 30 ML CUP PO PRN (13:15)
[2017-08-03] MEDS ORDERED: LACTULOSE SYRUP 20 GM/30 ML CUP PO PRN (13:15)
[2017-08-03] MEDS: HEPARIN-D5W 25,000 U/250 ML 250 ML IV PRN (13:44)
[2017-08-03] MEDS ORDERED: KETOROLAC TROMETHAMINE 30 MG/ML (IVP) VIAL IV PUSH PRN (13:45)
--- NOTE | 2017-08-03 15:13 | MB ---
cc: SANTOS IRAHETA DATE OF CONSULTATION: 08/03/2017 HISTORY OF PRESENT ILLNESS This is a 26-year-old white male with a history of IV drug use who developed sharp stabbing anterior chest discomfort last night. It was radiating to the midportion of his back. He also had right-sided back pain. He also has had shortness of breath, dizziness and lightheadedness. He has not had any palpitations or peripheral edema. He used heroin yesterday and crack cocaine 2-3 days ago. His pain is now resolved. PAST MEDICAL HISTORY 1. Hepatitis C. 2. History of orthopedic surgery. No history of hypertension, dyslipidemia, diabetes mellitus, coronary artery disease or CVA. MEDICATIONS None. ALLERGIES None. SOCIAL HISTORY The patient is a smoker, smokes half pack a day. He drinks a six-pack a day. He uses heroin 2-3 times a day. He uses crack cocaine about once a week. He was treated with methadone in the methadone clinic in the past. His HIV test was negative about a year and a half ago. He lives in a motel. He is unemployed. FAMILY HISTORY Negative for heart disease. REVIEW OF SYSTEMS Otherwise negative. PHYSICAL EXAMINATION VITAL SIGNS: Blood pressure 97/55, pulse 64 and regular. HEENT: Negative. NECK: 2+ carotid upstrokes. No bruits. LUNGS: Clear. HEART: Regular with no murmur, gallop or rub. ABDOMEN: Soft. No bruits. EXTREMITIES: Without edema. 2+ distal pulses. NEUROLOGIC: Grossly nonfocal. EKG EKG was reviewed and showed sinus rhythm and diffuse ST elevation consistent with early repolarization. Follow-up EKG again showed repolarization and no significant change in the ST segments. LABORATORY Hemoglobin 14.6. Potassium 4.0. Creatinine 0.85. CK 86. CK-MB 10.8. CK-MB index normal at 2.7. Troponin 4.22. ECHOCARDIOGRAM Echocardiogram showed preserved left ventricular systolic function and no segmental wall motion abnormalities. DIAGNOSIS 1. Atypical chest pain. 2. Preserved left ventricular systolic function. 3. Abnormal cardiac enzymes. 4. IV drug use; heroin and crack cocaine use. 5. Smoking. DISPOSITION Mr. Alvarado'constanza pain has now resolved. His EKG is consistent with early repolarization. His cardiac enzyme are mildly abnormal. He will be monitored on telemetry and treated preemptively for acute coronary syndrome. We will obtain serial enzymes and EKGs. I will follow him for cardiology during his hospitalization. He was counseled on the dangers of IV drug use and smoking. MD MARK Gomez/ELIA /2:49 PM /3:01 PM ANSHUL
[2017-08-03 16:34] LABS: CKMB 30.7 NG/ML (0.5-3.6)
--- NOTE | 2017-08-03 17:44 | ECHRPT ---
Indication: Chest pain, unspecified CONCLUSIONS The left ventricular systolic function is normal with an estimated ejection fraction in the range of 60-65%. Wall thickness is measured at the upper limits of normal. Normal left ventricular size. There is mild tricuspid valve regurgitation. The estimated pulmonary arterial pressure is 34.6 mmHg. BP: / HR: 62 Rhythm: Sinus MEASUREMENTS (Male / Female) Normal Values Technical Quality:Good 2D ECHO LV Diastolic Diameter PLAX 5.1 cm 4.2 - 5.9 / 3.9 - 5.3 cm LV Systolic Diameter PLAX 3.6 cm IVS Diastolic Thickness 0.9 cm 0.6 - 1.0 / 0.6 - 0.9 cm LVPW Diastolic Thickness 0.9 cm 0.6 - 1.0 / 0.6 - 0.9 cm LV Relative Wall Thickness 0.3 LVOT Diameter 2.2 cm M-MODE Aortic Root Diameter MM 2.8 cm LA Systolic Diameter MM 3.2 cm LA Ao Ratio MM 1.1 AV Cusp Separation MM 2.5 cm DOPPLER AV Peak Velocity 111.0 cm/s AV Peak Gradient 4.9 mmHg LVOT Peak Velocity 114.0 cm/s LVOT Peak Gradient 5.2 mmHg AV Area Cont Eq pk 3.9 cm Mitral E Point Velocity 97.2 cm/s Mitral A Point Velocity 31.1 cm/s Mitral E to A Ratio 3.1 LV E' Lateral Velocity 0.8 cm/s Mitral E to LV E' Lateral Ratio 124.6 LV E' Septal Velocity 15.2 cm/s Mitral E to LV E' Septal Ratio 6.4 TR Peak Velocity 248.0 cm/s TR Peak Gradient 24.6 mmHg Right Atrial Pressure 10.0 mmHg Pulmonary Artery Systolic Pressu 34.6 mmHg Right Ventricular Systolic Press 34.6 mmHg PV Peak Velocity 121.0 cm/s PV Peak Gradient 5.9 mmHg FINDINGS LEFT VENTRICLE The left ventricular systolic function is normal with an estimated ejection fraction in the range of 60-65%. Wall thickness is measured at the upper limits of normal. Normal left ventricular size. RIGHT VENTRICLE Normal right ventricular size and systolic function. LEFT ATRIUM The left atrial size is normal. RIGHT ATRIUM The right atrial size is normal. ATRIAL SEPTUM Normal atrial septal thickness without atrial level shunting by limited color doppler interrogation. AORTA The aortic root and proximal ascending aorta are normal in size on limited imaging. MITRAL VALVE Structurally normal mitral valve. No mitral valve stenosis or regurgitation. AORTIC VALVE Trileaflet aortic valve. No aortic valve stenosis or regurgitation. TRICUSPID VALVE There is mild tricuspid valve regurgitation. The estimated pulmonary arterial pressure is 34.6 mmHg. PULMONARY VALVE No pulmonary valve regurgitation or stenosis. VESSELS The inferior vena cava is normal in size. PERICARDIUM No pericardial effusion. Flaquita Menchaca MD, FACC (Electronically Signed) Final Date:03 August 2017 17:43
--- NOTE | 2017-08-03 19:39 | EKG ---
Date Performed: 08/03/2017 Time Performed: 14:26:10 PTAGE: 26 years EKG: Sinus rhythm WITH OCCASIONAL VENTRICULAR PREMATURE COMPLEXES and junctional escape beat. POSSIBLE RIGHT VENTRICUL AR CONDUCTION DELAY LEFT ANTERIOR FASCICULAR BLOCK ABNORMAL ECG INTERPRETATION BASED ON A DEFAULT AGE OF 40 YEARS Compared to prior electrocardiogram, Premature ventricular contractions and junctional e scape beat are now present PREVIOUS TRACING : 08/03/2017 11.49 DOCTOR: Adriano Brown Interpretating Date/Time 08/03/2017 19:38:23
[2017-08-03] MEDS ORDERED: LORazepam 2 MG/ML VIAL IV PUSH PRN ×4 (20:30)
[2017-08-03] MEDS ORDERED: LORazepam 1 MG TAB PO PRN (20:30)
[2017-08-03] MEDS ORDERED: LORazepam 2 MG TAB PO PRN (20:30)
[2017-08-03] MEDS ORDERED: FLUMAZENIL 0.5 MG/5 ML VIAL IV PUSH PRN (20:30)
--- NOTE | 2017-08-03 20:38 | EKG ---
Date Performed: 08/03/2017 Time Performed: 11:49:59 PTAGE: 26 years EKG: Sinus rhythm LEFT ANTERIOR FASCICULAR BLOCK Nonspecific ST changes ABNORMAL ECG Compared to prior electrocardiogr am, ST elevations are less marked . PREVIOUS TRACING : 08/03/2017 09.36 DOCTOR: Adriano Brown Interpretating Date/Time 08/03/2017 20:36:58
[2017-08-03] MEDS ORDERED: DOCUSATE SODIUM 50 MG/SENNA 8.6 MG TAB PO SCH (21:00)
[2017-08-03] MEDS ORDERED: SODIUM CHLORIDE 0.9% FLUSH 10 ML FLUSH IV FLUSH SCH (21:00)
[2017-08-03 22:01] LABS: APTT (PATIENT) 30.5 SEC (24.3-30.1)
[2017-08-03 22:41] LABS: CKMB 21.4 NG/ML (0.5-3.6)
[2017-08-04] VITALS: PULSE 76
--- NOTE | 2017-08-04 01:15 | PD.AMA ---
Against Medical Advice Note Diagnosis: (1) Drug abuse and dependence (2) Cocaine-induced vascular disorder Discharge Disposition: Against Medical Advice Pt Condition on Discharge: Guarded AMA Statement Patient Nj Alvarado has decided to leave the hospital against medical advice. This patient has the capacity to refuse care and understands the risks of leaving, including permanent disability and/or , and has had an opportunity to ask questions about his condition. The patient has been informed that he may return to the hospital for care at any time. Virginia Swain MD R1 Aug 04, 2017 01:15
--- NOTE | 2017-08-04 05:12 | EKG ---
Date Performed: 08/03/2017 Time Performed: 21:45:42 PTAGE: 26 years EKG: Sinus rhythm with PVC(s) Left anterior fascicular block Possible anterior infarct - age undetermined Lateral T wa ve changes are borderline abnormal Abnormal ECG No significant change from prior electrocardiogram. PREVIOUS TRACING : 08/03/2017 14.26 DOCTOR: Adriano Brown Interpretating Date/Time 08/04/2017 05:12:08
[2017-08-04] MEDS ORDERED: PNEUMOCOCCAL POLYVALENT INJ 25 MCG/0.5 ML SYR IM ONE (10:00)
== END 2017-08-04 01:19 | disposition left against medical advice (07) ==
LOC: NEPD 09:01 → INTOOBSV 12:51 → NEDA 12:51 → HCIS 18:44
PROVIDERS: ADMIT Family Medicine; ATTEND Family Medicine
DX: F14.988 Cocaine use, unspecified with other cocaine-induced disorder (principal); R63.8 Other symptoms and signs concerning food and fluid intake; R11.2 Nausea with vomiting, unspecified; I21.4 Non-ST elevation (NSTEMI) myocardial infarction; M54.6 Pain in thoracic spine; B19.20 Unspecified viral hepatitis C without hepatic coma; R07.9 Chest pain, unspecified; J06.9 Acute upper respiratory infection, unspecified; R10.9 Unspecified abdominal pain; I48.91 Unspecified atrial fibrillation; I44.4 Left anterior fascicular block; R42 Dizziness and giddiness; F11.90 Opioid use, unspecified, uncomplicated; F17.200 Nicotine dependence, unspecified, uncomplicated
CPT/HCPCS: 71010; 71275; 80053; 80307; 82550; 82552; 83690; 84484; 85025; 85379; 85610; 85730; 87804; 93005; 93306; 94664; 96361; 96374; 96375; G0378; J1644; J1885; J2405; J2930; J7030; Q9967

== ENCOUNTER 2017-12-13 12:25 | Inpatient (IN) | payer SELFPAY ==
[~2017-12-13] VITALS: Ht 177.8 cm; Wt 61.5 kg
[2017-12-13 13:07] VITALS: BP 131/65; PULSE 108; RESP 22; TEMP 99; O2SAT 97
--- NOTE | 2017-12-13 13:55 | RADRPT ---
EXAM DATE/TIME: 12/13/2017 13:38 [facility] COMPARISON: No previous studies available for comparison. INDICATIONS : Fever. MEDICAL HISTORY : None. SURGICAL HISTORY : None. ENCOUNTER: Initial ACUITY: 4 - 6 days PAIN SCORE: 5/10 LOCATION: Bilateral chest FINDINGS: PA and lateral views of the chest demonstrate the lungs to be symmetrically aerated without evidence of mass, infiltrate or effusion. The cardiomediastinal contours are unremarkable. Osseous structure s are intact with an S-shaped scoliosis of the thoracolumbar spine. CONCLUSION: 1. S. shaped scoliosis of the thoracolumbar spine. 2. No acute cardiopulmonary process to explain current clinical symptoms. Lester Mendoza MD on December 13, 2017 at 13:52 Board Certified Radiologist. This report was verified electronically.
--- NOTE | 2017-12-13 13:57 | RADRPT ---
EXAM DATE/TIME: 12/13/2017 13:43 [facility] COMPARISON: No previous studies available for comparison. INDICATIONS : Pain and swelling of left elbow. Patient states IV drug use. MEDICAL HISTORY : None. SURGICAL HISTORY : None. ENCOUNTER: Initial ACUITY: 4 - 6 days PAIN SCORE: 6/10 LOCATION: Left elbow FINDINGS: Multiple view examination of the left elbow demonstrates no soft tissue swelling, joint effusion, or fracture. The osseous structures are in normal alignment. Bony mineralization is normal. CONCLUSION: Negative exam. Lester Mendoza MD on December 13, 2017 at 13:54 Board Certified Radiologist. This report was verified electronically.
[2017-12-13 15:18] LABS: AUTOMATED NEUTROPHIL # 13.4 TH/MM3 (1.8-7.7); BASOPHIL # 0.1 TH/MM3 (0-0.2); BASOPHIL % 0.4 % (0.0-2.0); EOSINOPHIL % 0.2 % (0.0-4.0); HEMATOCRIT 45.1 % (39.0-51.0); HEMOGLOBIN 15.2 GM/DL (13.0-17.0); MEAN CELL VOLUME 85.2 FL (80.0-100.0); MEAN CORPUSCULAR HEMOGLOBIN 28.8 PG (27.0-34.0); MEAN CORPUSCULAR HGB CONC 33.8 % (32.0-36.0); MEAN PLATELET VOLUME 6.4 FL (7.0-11.0); MONO % 7.4 % (0.0-8.0); MONOCYTE # 1.2 TH/MM3 (0-0.9); PLATELET COUNT 309 TH/MM3 (150-450); RED CELL DISTRIBUTION WIDTH 13.3 % (11.6-17.2); WHITE BLOOD COUNT 16.8 TH/MM3 (4.0-11.0)
[2017-12-13 15:29] LABS: PROTHROMBIN TIME - PATIENT 10.5 SEC (9.8-11.6)
[2017-12-13 15:46] LABS: ALBUMIN 3.6 GM/DL (3.4-5.0); AST (GOT) 13 U/L (15-37); BLOOD UREA NITROGEN 8 MG/DL (7-18); CALCIUM 9.1 MG/DL (8.5-10.1); CHLORIDE 100 MEQ/L (98-107); CREATININE 0.75 MG/DL (0.60-1.30); GLOMERULAR FILTRATION RATE 124 ML/MIN (>89); GLUCOSE,RANDOM 120 MG/DL (74-106); SODIUM (NA) 138 MEQ/L (136-145)
[2017-12-13 15:49] LABS: ALKALINE PHOSPHATASE 86 U/L (45-117); ALT (GPT) 20 U/L (12-78); TOTAL BILIRUBIN ADULT 0.5 MG/DL (0.2-1.0); TOTAL PROTEIN 8.3 GM/DL (6.4-8.2)
[2017-12-13] MEDS ORDERED: SENNOSIDES 8.6 MG TAB PO PRN (18:15)
[2017-12-13] MEDS ORDERED: MAGNESIUM HYDROXIDE SUSP 30 ML CUP PO PRN (18:15)
[2017-12-13] MEDS ORDERED: VANCOMYCIN INJ 1,000 MG in SODIUM CHLOR 0.9% 250 ML INJ 250 ML IV ONE (18:15)
[2017-12-13] MEDS ORDERED: NICOTINE 14 MG/24 HR PATCH T-DERMAL ONE (18:15)
[2017-12-13] MEDS ORDERED: SODIUM CHLORIDE 0.9% FLUSH 10 ML FLUSH IV FLUSH PRN (18:15)
[2017-12-13] MEDS ORDERED: LACTULOSE SYRUP 20 GM/30 ML CUP PO PRN (18:15)
[2017-12-13] MEDS ORDERED: NALOXONE HCL 0.4 MG/ML AMP IV PUSH PRN (18:15)
[2017-12-13] MEDS ORDERED: BISACODYL 10 MG SUPP RECTAL PRN (18:15)
[2017-12-13] MEDS ORDERED: KETOROLAC TROMETHAMINE 30 MG/ML (IVP) VIAL IV PUSH ONE (18:15)
[2017-12-13] MEDS ORDERED: Vancomycin Consult Pharmacy 1 EA OTHER SCH (18:15)
--- NOTE | 2017-12-13 18:49 | PD ---
HPI Chief Complaint: Edema Time Seen by Provider: 17:55 Travel History International Travel<30 days: No Contact w/Intl Traveler<30days: No Traveled to known affect area: No History of Present Illness HPI 27-year-old male that presents to the ED for evaluation of swelling and pain to the left forearm. Patient states that he's had this for 5 days. Per patient he comes and goes. Per patient was severe today. Per patient he began swelling and then it goes back to normal. Patient has a history of IV drug abuse and states that he last used in that arm on . Per patient he went to custodial after this and he is concerned that maybe been in custodial cause this. He is never had anything like this before. No history of MRSA. Per patient he feels like he has chills and sweats. Denies any chest pain or shortness of breath. Has not seen anybody for this. Per patient the swelling is mainly to the medial aspect of the forearm as well as the elbow. Erythematous and painful. Per patient the pain is 6 out of 10. He denies any other medical issues. PFSH Past Medical History ADHD: No Cancer: No Cardiovascular Problems: No Diabetes: No Diminished Hearing: No Hepatitis: Yes (c) Psychiatric: No Immunizations Current: Yes Seizures: No Thyroid Disease: No ?: Not Past Surgical History Other Surgery: No Social History Alcohol Use: Yes (DAILY [employer]ER) Tobacco Use: Yes (1ppd) Allergies-Medications (Allergen,Severity, Reaction): Coded Allergies: No Known Allergies (Verified Allergy, Unknown, 08/03/17) Reported Meds & Prescriptions Reported Meds & Active Scripts Active No Active Prescriptions or Reported Medications Review of Systems Except as stated in HPI: all other systems reviewed are Neg Physical Exam Narrative GENERAL: SKIN: Warm and dry. HEAD: Atraumatic. Normocephalic. EYES: Pupils equal and round. No scleral icterus. No injection or drainage. ENT: No nasal bleeding or discharge. Mucous membranes pink and moist. Tongue is midline. No uvula deviation. NECK: Trachea midline. No JVD. CARDIOVASCULAR: Regular rate and rhythm. No murmurs, S3, S4. RESPIRATORY: No accessory muscle use. Clear to auscultation. Breath sounds equal bilaterally. GASTROINTESTINAL: Abdomen soft, non-tender, nondistended. Hepatic and splenic margins not palpable. MUSCULOSKELETAL: Extremities without clubbing, cyanosis, or edema. No obvious deformities. Full range of motion of the upper and lower extremities with exception of the left elbow which patient cannot completely move all the way secondary to pain. Joint itself appears to be intact. Most of the pain and swelling to the medial aspect of the elbow and mostly to the skin. Some induration noted but no obvious sign of abscess or purulence. Erythematous more than 10 cm in diameter. No lymphadenopathy noted. 2+ pulses bilaterally. NEUROLOGICAL: Awake and alert. No obvious cranial nerve deficits. Motor grossly within normal limits. Five out of 5 muscle strength in the arms and legs. Normal speech. PSYCHIATRIC: Appropriate mood and affect; insight and judgment normal. Data Data Last Documented VS Vital Signs Date Time Temp Pulse Resp B/P (MAP) Pulse Ox O2 Delivery O2 Flow Rate FiO2 12/13/17 13:07 99.0 108 22 131/65 (87) 97 Orders Orders Complete Blood Count With Diff (12/13/17 13:10) Comprehensive Metabolic Panel (12/13/17 13:10) Prothrombin Time / Inr (Pt) (12/13/17 13:10) Act Partial Throm Time (Ptt) (12/13/17 13:10) Lactic Acid Sepsis Protocol (12/13/17 13:10) Blood Culture (12/13/17 13:10) Chest, Pa & Lat (12/13/17 13:10) Elbow, Complete (4 Vws) (12/13/17 ) Vancomycin Inj (Vancomycin Inj) (12/13/17 18:15) Us Arm Soft Tissue (12/13/17 ) Ketorolac Inj (Toradol Inj) (12/13/17 18:15) Nicotine 14 Mg Patch.24 Hr (Habitrol 14 (12/13/17 18:15) Admit Order (Ed Use Only) (12/13/17 18:06) Labs Laboratory Tests Test 12/13/17 14:45 White Blood Count 16.8 TH/MM3 Red Blood Count 5.30 MIL/MM3 Hemoglobin 15.2 GM/DL Hematocrit 45.1 % Mean Corpuscular Volume 85.2 FL Mean Corpuscular Hemoglobin 28.8 PG Mean Corpuscular Hemoglobin Concent 33.8 % Red Cell Distribution Width 13.3 % Platelet Count 309 TH/MM3 Mean Platelet Volume 6.4 FL Neutrophils (%) (Auto) 80.0 % Lymphocytes (%) (Auto) 12.0 % Monocytes (%) (Auto) 7.4 % Eosinophils (%) (Auto) 0.2 % Basophils (%) (Auto) 0.4 % Neutrophils # (Auto) 13.4 TH/MM3 Lymphocytes # (Auto) 2.0 TH/MM3 Monocytes # (Auto) 1.2 TH/MM3 Eosinophils # (Auto) 0.0 TH/MM3 Basophils # (Auto) 0.1 TH/MM3 CBC Comment DIFF FINAL Differential Comment Prothrombin Time 10.5 SEC Prothromb Time International Ratio 1.0 RATIO Activated Partial Thromboplast Time 32.0 SEC Blood Urea Nitrogen 8 MG/DL Creatinine 0.75 MG/DL Random Glucose 120 MG/DL Total Protein 8.3 GM/DL Albumin 3.6 GM/DL Calcium Level 9.1 MG/DL Alkaline Phosphatase 86 U/L Aspartate Amino Transf (AST/SGOT) 13 U/L Alanine Aminotransferase (ALT/SGPT) 20 U/L Total Bilirubin 0.5 MG/DL Sodium Level 138 MEQ/L Potassium Level 4.6 MEQ/L Chloride Level 100 MEQ/L Carbon Dioxide Level 31.0 MEQ/L Anion Gap 7 MEQ/L Estimat Glomerular Filtration Rate 124 ML/MIN Lactic Acid Level 0.7 mmol/L MDM Medical Decision Making Medical Screen Exam Complete: Yes Emergency Medical Condition: Yes Medical Record Reviewed: Yes Interpretation(s) CBC & BMP Diagram 12/13/17 14:45 Total Protein 8.3 H, Albumin 3.6, Calcium Level 9.1, Alkaline Phosphatase 86, Aspartate Amino Transf (AST/SGOT) 13 L, Alanine Aminotransferase (ALT/SGPT) 20, Total Bilirubin 0.5 Last Impressions Chest X-Ray 12/13/17 1310 Signed Impressions: Service Date/Time: Wednesday, December 13, 2017 13:38 - CONCLUSION: 1. S. shaped scoliosis of the thoracolumbar spine. 2. No acute cardiopulmonary process to explain current clinical symptoms. Lester Mendoza MD Elbow X-Ray 12/13/17 0000 Signed Impressions: Service Date/Time: Wednesday, December 13, 2017 13:43 - CONCLUSION: Negative exam. Lester Mendoza MD Differential Diagnosis Sepsis versus cellulitis versus abscess Narrative Course 27-year-old male that presents to the ED for evaluation of infection to his left arm. Patient was properly examined and was found to have signs and symptoms consistent with appears to be cellulitis. Patient is tachycardic and has a elevated white blood cell count found in imaging and labs that were done in triage. Patient's cellulitis is significant. Ultrasound will be done to rule out any sign of abscess although this appears to be more cellulitic. No sign of septic joint at this time. I do recommend admission for IV antibiotics secondary to significant infection as well as history of IV drug abuse. Patient agrees with this plan. Case was discussed in my attending Dr. Brady who was made aware of findings and agrees to admission. Patient was admitted to Dr. Lombardi who agrees to admission. Sepsis Criteria SIRS Criteria (2 or more): WBC > 57593, < 4000 or > 10% bands Sepsis Criteria (SIRS+source): Infect source susp/known Criteria Outcome: Meets sepsis criteria Diagnosis Primary Impression: Cellulitis Qualified Codes: L03.114 - Cellulitis of left upper limb Additional Impression: Sepsis Qualified Codes: A41.9 - Sepsis, unspecified organism Admitting Information Admitting Physician Requests: Admit Scripts No Active Prescriptions or Reported Dariusz Mckinney Dec 13, 2017 18:49
--- NOTE | 2017-12-13 20:07 | RADRPT ---
EXAM DATE/TIME: 12/13/2017 18:44 [facility] COMPARISON: No previous studies available for comparison. INDICATIONS : Left arm swelling. MEDICAL HISTORY : Hepatitis C. Substance abuse. Recent IVDU SURGICAL HISTORY : Left hand surgery. ENCOUNTER: Initial ACUITY: 1 day PAIN SCORE: 5/10 LOCATION: Left arm. AREA EVALUATED: Left medial AC area FINDINGS: There is a phlegmonous mass/complex fluid collection in the left medial antecubital area measuring up to 2.6 x 3 x 1.1 cm. There is surrounding edema and vascularity. No thrombus identified in this area . CONCLUSION: 1. Phlegmonous mass/complex fluid collection in the left antecubital fossa with surrounding increased vascularity. Jatin Romero MD on December 13, 2017 at 20:03 Board Certified Radiologist. This report was verified electronically.
[2017-12-13] MEDS: SODIUM CHLORIDE 0.9% FLUSH 10 ML FLUSH IV FLUSH SCH (22:17)
[2017-12-13 22:19] VITALS: BP 113/53; PULSE 76; RESP 20; TEMP 99.1; O2SAT 99
[2017-12-13] MEDS: LORazepam 2 MG/ML VIAL IV PUSH PRN (23:40)
[2017-12-14 00:35] VITALS: BP 125/67; PULSE 90; RESP 21; TEMP 98.5; O2SAT 98
[2017-12-14] MEDS: VANCOMYCIN INJ 750 MG in SODIUM CHLOR 0.9% 250 ML INJ 250 ML IV SCH ×3 (01:12→18:20)
[2017-12-14 04:00] VITALS: BP 112/64; PULSE 81; RESP 21; TEMP 98.5; O2SAT 97
[2017-12-14 05:59] LABS: AUTOMATED NEUTROPHIL # 8.5 TH/MM3 (1.8-7.7); BASOPHIL # 0.1 TH/MM3 (0-0.2); BASOPHIL % 0.7 % (0.0-2.0); EOSINOPHIL # 0.3 TH/MM3 (0-0.4); EOSINOPHIL % 2.3 % (0.0-4.0); HEMATOCRIT 38.9 % (39.0-51.0); HEMOGLOBIN 13.2 GM/DL (13.0-17.0); LYMPHOCYTE # 1.8 TH/MM3 (1.0-4.8); MEAN CELL VOLUME 84.2 FL (80.0-100.0); MEAN CORPUSCULAR HEMOGLOBIN 28.5 PG (27.0-34.0); MEAN CORPUSCULAR HGB CONC 33.9 % (32.0-36.0); MEAN PLATELET VOLUME 6.7 FL (7.0-11.0); PLATELET COUNT 267 TH/MM3 (150-450); RED BLOOD COUNT 4.62 MIL/MM3 (4.50-5.90); WHITE BLOOD COUNT 11.7 TH/MM3 (4.0-11.0)
[2017-12-14 06:24] LABS: ALBUMIN 2.9 GM/DL (3.4-5.0); ALKALINE PHOSPHATASE 69 U/L (45-117); ALT (GPT) 19 U/L (12-78); AST (GOT) 12 U/L (15-37); BICARBONATE 29.9 MEQ/L (21.0-32.0); BLOOD UREA NITROGEN 12 MG/DL (7-18); CALCIUM 8.4 MG/DL (8.5-10.1); CHLORIDE 99 MEQ/L (98-107); CREATININE 0.61 MG/DL (0.60-1.30); GLOMERULAR FILTRATION RATE 157 ML/MIN (>89); GLUCOSE,RANDOM 102 MG/DL (74-106); SODIUM (NA) 137 MEQ/L (136-145); TOTAL BILIRUBIN ADULT 0.4 MG/DL (0.2-1.0); TOTAL PROTEIN 6.8 GM/DL (6.4-8.2)
[2017-12-14 08:18] VITALS: BP 117/60; PULSE 78; RESP 16; TEMP 98.4; O2SAT 99
[2017-12-14] MEDS: LORazepam 2 MG/ML VIAL IV PUSH PRN ×3 (09:31→17:52)
[2017-12-14] MEDS: SODIUM CHLORIDE 0.9% FLUSH 10 ML FLUSH IV FLUSH SCH ×2 (09:31→22:18)
--- NOTE | 2017-12-14 11:00 | HHI.HP ---
[facility] Primary [facility] Physician No Primary Care Physician Admission Diagnosis cellulitis, IVDA Diagnoses: Chief Complaint: Left arm swelling and pain. Travel History International Travel<30 Days: No Contact w/Intl Traveler <30 Da: No Traveled to Known Affected Are: No Sepsis Criteria SIRS Criteria (2 or more): Heart rate over 90, RR > 20 or PaCO2 < 32, WBC > 12125, < 4000 or > 10% bands Sepsis Criteria (SIRS+source): Infect source susp/known Criteria Outcome: Meets SIRS criteria, Meets sepsis criteria History of Present Illness Mr. Alvarado is a pleasant 27-year-old male with a history of IV drug use who presented to the emergency department on 12/13/2017 due to left arm swelling and pain. His symptoms started approximately 5 days prior to this admission. He reports using IV heroin for almost 8 years. However he has not used left arm for IV drugs in some time. His recent use was on his right arm. He reports subjective fever and chills at home. Some nausea but no vomiting. No chest pain, shortness of breath. No abdominal pain, no changes in bowel habit or bladder habits. Review of Systems Except as stated in HPI: all other systems reviewed are Neg Past Family Social History Past Medical History IV drug use Past Surgical History No surgeries in the past. Reported Medications Does not take any medications on a regular basis Allergies: Coded Allergies: No Known Allergies (Verified Allergy, Unknown, 08/03/17) Family History No family history of early heart disease, cancer, diabetes. Social History Patient drinks about 4-6 beers a day. Smokes about 1 pack a day. He started using drugs after he was prescribed oxycodone 8 years ago and subsequently he started getting oxycodone off the street and eventually got addicted to heroin. Physical Exam Vital Signs Vital Signs Date Time Temp Pulse Resp B/P (MAP) Pulse Ox O2 Delivery O2 Flow Rate FiO2 12/14/17 08:18 98.4 78 16 117/60 (79) 99 12/14/17 04:00 98.5 81 21 112/64 (80) 97 12/14/17 00:35 98.5 90 21 125/67 (86) 98 12/13/17 22:19 99.1 76 20 113/53 (73) 99 12/13/17 13:07 99.0 108 22 131/65 (87) 97 Physical Exam GENERAL: This is a well-nourished, well-developed patient, in no apparent distress. SKIN: No rashes, ecchymoses or lesions. Warm and dry. HEAD: Atraumatic. Normocephalic. No temporal or scalp tenderness. EYES: Pupils equal round and reactive. No injection or drainage. ENT: Nose without bleeding, purulent drainage or septal hematoma. Airway patent. NECK: Trachea midline. No lymphadenopathy. Supple, nontender, no meningeal signs. CARDIOVASCULAR: Regular rate and rhythm without murmurs, gallops, or rubs. No JVD. RESPIRATORY: Clear to auscultation. Breath sounds equal bilaterally. No wheezes , rales, or rhonchi. GASTROINTESTINAL: Abdomen soft, non-tender, nondistended. No guarding. MUSCULOSKELETAL: Extremities without clubbing, cyanosis. Left forearm significantly warm, erythematous and swollen. There is a fluctuant fluid collection in the antecubital fossa. No drainage noted. NEUROLOGICAL: Awake and alert. Cranial nerves II through XII intact. No focal neurological deficits. Normal speech. Laboratory Laboratory Tests Test 12/13/17 14:45 12/14/17 04:46 White Blood Count 16.8 11.7 Red Blood Count 5.30 4.62 Hemoglobin 15.2 13.2 Hematocrit 45.1 38.9 Mean Corpuscular Volume 85.2 84.2 Mean Corpuscular Hemoglobin 28.8 28.5 Mean Corpuscular Hemoglobin Concent 33.8 33.9 Red Cell Distribution Width 13.3 13.0 Platelet Count 309 267 Mean Platelet Volume 6.4 6.7 Neutrophils (%) (Auto) 80.0 73.0 Lymphocytes (%) (Auto) 12.0 15.0 Monocytes (%) (Auto) 7.4 9.0 Eosinophils (%) (Auto) 0.2 2.3 Basophils (%) (Auto) 0.4 0.7 Neutrophils # (Auto) 13.4 8.5 Lymphocytes # (Auto) 2.0 1.8 Monocytes # (Auto) 1.2 1.0 Eosinophils # (Auto) 0.0 0.3 Basophils # (Auto) 0.1 0.1 CBC Comment DIFF FINAL DIFF FINAL Differential Comment Prothrombin Time 10.5 Prothromb Time International Ratio 1.0 Activated Partial Thromboplast Time 32.0 Blood Urea Nitrogen 8 12 Creatinine 0.75 0.61 Random Glucose 120 102 Total Protein 8.3 6.8 Albumin 3.6 2.9 Calcium Level 9.1 8.4 Alkaline Phosphatase 86 69 Aspartate Amino Transf (AST/SGOT) 13 12 Alanine Aminotransferase (ALT/SGPT) 20 19 Total Bilirubin 0.5 0.4 Sodium Level 138 137 Potassium Level 4.6 3.7 Chloride Level 100 99 Carbon Dioxide Level 31.0 29.9 Anion Gap 7 8 Estimat Glomerular Filtration Rate 124 157 Lactic Acid Level 0.7 Date/Time Source Procedure Growth Status 12/13/17 14:45 Blood Peripheral Aerobic Blood Culture Pending Received 12/13/17 14:45 Blood Peripheral Anaerobic Blood Culture Pending Received Result Diagram: 12/14/17 0446 12/14/17 0446 Imaging Last Impressions Chest X-Ray 12/13/17 1310 Signed Impressions: Service Date/Time: Wednesday, December 13, 2017 13:38 - CONCLUSION: 1. S. shaped scoliosis of the thoracolumbar spine. 2. No acute cardiopulmonary process to explain current clinical symptoms. Lester Mendoza MD Upper Extremity Ultrasound 12/13/17 0000 Signed Impressions: Service Date/Time: Wednesday, December 13, 2017 18:44 - CONCLUSION: 1. Phlegmonous mass/complex fluid collection in the left antecubital fossa with surrounding increased vascularity. Jatin Romero MD Elbow X-Ray 12/13/17 0000 Signed Impressions: Service Date/Time: Wednesday, December 13, 2017 13:43 - CONCLUSION: Negative exam. Lester Mendoza MD Caprini VTE Risk Assessment Caprini VTE Risk Assessment: No/Low Risk (score <= 1) Caprini Risk Assessment Model Point Value = 1 Point Value = 2 Point Value = 3 Point Value = 5 Age 41-60 Minor surgery BMI > 25 kg/m2 Swollen legs Varicose veins or History of unexplained or recurrent spontaneous Oral contraceptives or hormone replacement Sepsis (< 1 month) Serious lung disease, including pneumonia (< 1 month) Abnormal pulmonary function Acute myocardial infarction Congestive heart failure (< 1 month) History of inflammatory bowel disease Medical patient at bed rest Age 61-74 Arthroscopic surgery Major open surgery (> 45 min) Laparoscopic surgery (> 45 min) Malignancy Confined to bed (> 72 hours) Immobilizing plaster cast Central venous access Age >= 75 History of VTE Family history of VTE Factor V Leiden Prothrombin [id number] Lupus anticoagulant Anticardiolipin antibodies Elevated serum homocysteine Heparin-induced thrombocytopenia Other congenital or acquired thrombophilia Stroke (< 1 month) Elective arthroplasty Hip, pelvis, or leg fracture Acute spinal cord injury (< 1 month) Prophylaxis Regimen Total Risk Factor Score Risk Level Prophylaxis Regimen 0-1 Low Early ambulation 2 Moderate Order ONE of the following: *Sequential Compression Device (SCD) *Heparin 5000 units SQ BID 3-4 Higher Order ONE of the following medications: *Heparin 5000 units SQ TID *Enoxaparin/Lovenox 40 mg SQ daily (WT < 150 kg, CrCl > 30 mL/min) *Enoxaparin/Lovenox 30 mg SQ daily (WT < 150 kg, CrCl > 10-29 mL/min) *Enoxaparin/Lovenox 30 mg SQ BID (WT < 150 kg, CrCl > 30 mL/min) AND/OR *Sequential Compression Device (SCD) 5 or more Highest Order ONE of the following medications: *Heparin 5000 units SQ TID (Preferred with Epidurals) *Enoxaparin/Lovenox 40 mg SQ daily (WT < 150 kg, CrCl > 30 mL/min) *Enoxaparin/Lovenox 30 mg SQ daily (WT < 150 kg, CrCl > 10-29 mL/min) *Enoxaparin/Lovenox 30 mg SQ BID (WT < 150 kg, CrCl > 30 mL/min) AND *Sequential Compression Device (SCD) Assessment and Plan Problem List: (1) Sepsis ICD Code: A41.9 - Sepsis, unspecified organism Status: Acute (2) Cellulitis of left arm ICD Code: L03.114 - Cellulitis of left upper limb (3) IVDU (intravenous drug user) ICD Code: F19.90 - Other psychoactive substance use, unspecified, uncomplicated Assessment and Plan Mr. Alvarado is a pleasant 27-year-old male with a history of IV drug use who presented to the emergency department on 12/13/2017 due to left arm swelling, pain, fever and chills. He denies using left arm for IV drug use recently. He has been using IV drugs for almost 8 years. Sepsis (tachycardia, resp rate 22, WBC elevated to 16.8K, known infection cellulitis). Left arm cellulitis Probable abscess of the left antecubital fossa Ultrasound indicates fluid collection in the antecubital fossa. We will continue vancomycin for now. Keep trough level between 15-20. Blood cultures pending. If positive, we will pursue endocarditis work up including echocardiogram. Will get an orthopedic surgery consult for possible I&D of fluid collection of antecubital fossa. If I&D is done and blood cx negative, we can likely de-escalate abx to oral meds (Keflex, Bactrim). IVDU Tobacco abuse Alcohol abuse Patient is counselled on substance abuse. Full code. Ambulation. Physician Certification 2 Midnight Certification Type: Admission for Inpatient Services Order for Inpatient Services The services are ordered in accordance with Medicare regulations or non- Medicare payer requirements, as applicable. In the case of services not specified as inpatient-only, they are appropriately provided as inpatient services in accordance with the 2-midnight benchmark. Estimated LOS (days): 2 days is the estimated time the patient will need to remain in the hospital, assuming treatment plan goals are met and no additional complications. Post-Hospital Plan: Home Problem Qualifiers (1) Sepsis: Qualified Codes: A41.9 - Sepsis, unspecified organism Gab Murphy DO Dec 14, 2017 11:00
[2017-12-14 11:49] VITALS: BP 117/60; PULSE 79; RESP 18; TEMP 99.3; O2SAT 98
[2017-12-14 16:00] VITALS: BP 116/55; PULSE 87; RESP 17; TEMP 98.5; O2SAT 98
[2017-12-14] MEDS ORDERED: PHARMACY ORDERED LAB ONE (17:45)
[2017-12-14] MEDS ORDERED: FLUMAZENIL 0.5 MG/5 ML VIAL IV PUSH PRN (19:45)
[2017-12-14] MEDS ORDERED: LORazepam 2 MG/ML VIAL IV PUSH PRN ×4 (19:45)
[2017-12-14] MEDS ORDERED: HALOPERIDOL LACTATE 5 MG/ML AMP IM PRN (19:45)
[2017-12-14 20:00] VITALS: BP 125/61; PULSE 86; RESP 18; TEMP 100.3; O2SAT 99
[2017-12-14] MEDS: LORazepam 1 MG TAB PO PRN (22:17)
[2017-12-15] VITALS (8 sets, daily range): BP systolic 120–144; BP diastolic 60–88; PULSE 70–116; RESP 16–18; TEMP 97.5–99.1; O2SAT 98–100
[2017-12-15] MEDS: LORazepam 2 MG TAB PO PRN ×4 (02:29→22:37)
[2017-12-15] MEDS: VANCOMYCIN INJ 900 MG in SODIUM CHLOR 0.9% 250 ML INJ 250 ML IV SCH ×3 (02:29→17:16)
[2017-12-15] MEDS ORDERED: ACETAMINOPHEN 325 MG TAB PO PRN (08:00)
[2017-12-15] MEDS: SODIUM CHLORIDE 0.9% FLUSH 10 ML FLUSH IV FLUSH SCH ×2 (09:14→21:00)
[2017-12-15] MEDS: FOLIC ACID 1 MG TAB PO SCH (09:16)
[2017-12-15] MEDS: THIAMINE HCL 100 MG TAB PO SCH (09:16)
[2017-12-15] MEDS: MULTIVITAMINS/MINERALS THERAPEUTIC TAB PO SCH (09:17)
[2017-12-15] MEDS: NS + KCL 20 MEQ INJ 1,000 ML IV SCH ×2 (09:43→21:15)
[2017-12-15] MEDS ORDERED: INFLUENZA VIRUS VACCINE (QUADRIVALENT) 0.5 ML SYR IM ONE (10:00)
[2017-12-15] MEDS ORDERED: PNEUMOCOCCAL POLYVALENT INJ 25 MCG/0.5 ML SYR IM ONE (10:00)
--- NOTE | 2017-12-15 11:23 | HHI.PR ---
Subjective Remarks Follow-up left upper extremity cellulitis/abscess. He is drowsy today because he did not sleep also received Ativan. Admits to drinking 4 packs a day and abusing heroin. Discussed with nursing, currently n.p.o. awaiting hand surgery evaluation Objective Vitals Vital Signs Date Time Temp Pulse Resp B/P (MAP) Pulse Ox O2 Delivery O2 Flow Rate FiO2 12/15/17 04:25 76 12/15/17 04:00 98.4 72 18 128/69 (88) 99 12/15/17 00:00 99.1 78 18 125/67 (86) 99 12/14/17 20:00 100.3 86 18 125/61 (82) 99 12/14/17 16:00 98.5 87 17 116/55 (75) 98 12/14/17 11:49 99.3 79 18 117/60 (79) 98 I/O 12/14/17 12/14/17 12/14/17 12/15/17 12/15/17 12/15/17 07:00 15:00 23:00 07:00 15:00 23:00 Intake Total 260 ml 1116.5 ml Output Total 700 ml Balance 260 ml -700 ml 1116.5 ml Intake Oral 600 ml IV Total 260 ml 516.5 ml Output Urine Total 700 ml # Voids 3 # Bowel Movements 0 Result Diagram: 12/14/17 0446 12/14/17 0446 Imaging Last Impressions Chest X-Ray 12/13/17 1310 Signed Impressions: Service Date/Time: Wednesday, December 13, 2017 13:38 - CONCLUSION: 1. S. shaped scoliosis of the thoracolumbar spine. 2. No acute cardiopulmonary process to explain current clinical symptoms. Lester Mendoza MD Upper Extremity Ultrasound 12/13/17 0000 Signed Impressions: Service Date/Time: Wednesday, December 13, 2017 18:44 - CONCLUSION: 1. Phlegmonous mass/complex fluid collection in the left antecubital fossa with surrounding increased vascularity. Jatin Romero MD Elbow X-Ray 12/13/17 0000 Signed Impressions: Service Date/Time: Wednesday, December 13, 2017 13:43 - CONCLUSION: Negative exam. Lester Mendoza MD Objective Remarks GENERAL: This is a well-nourished, well-developed patient, in no apparent distress. SKIN: No rashes, ecchymoses or lesions. Warm and dry. CARDIOVASCULAR: Regular rate and rhythm without murmurs, gallops, or rubs. No JVD. RESPIRATORY: Clear to auscultation. Breath sounds equal bilaterally. No wheezes , rales, or rhonchi. GASTROINTESTINAL: Abdomen soft, non-tender, nondistended. No guarding. MUSCULOSKELETAL: Extremities without clubbing, cyanosis. Left forearm significantly warm, erythematous and swollen. There is a fluctuant fluid collection in the antecubital fossa. No drainage noted. Full range of movement NEUROLOGICAL: Awake and alert. Cranial nerves II through XII intact. No focal neurological deficits. Normal speech. A/P Problem List: (1) Sepsis ICD Code: A41.9 - Sepsis, unspecified organism Status: Acute (2) Cellulitis of left arm ICD Code: L03.114 - Cellulitis of left upper limb (3) IVDU (intravenous drug user) ICD Code: F19.90 - Other psychoactive substance use, unspecified, uncomplicated Assessment and Plan Mr. Alvarado is a pleasant 27-year-old male with a history of IV drug use who presented to the emergency department on 12/13/2017 due to left arm swelling, pain, fever and chills. He denies using left arm for IV drug use recently. He has been using IV drugs for almost 8 years. Sepsis (tachycardia, resp rate 22, WBC elevated to 16.8K, known infection cellulitis). Left arm cellulitis Probable abscess of the left antecubital fossa Ultrasound indicates fluid collection in the antecubital fossa. We will continue vancomycin for now. Keep trough level between 15-20. Blood cultures pending. If positive, we will pursue endocarditis work up including echocardiogram. Will get hand surgery consult for possible I&D of fluid collection of antecubital fossa. If I&D is done and blood cx negative, we can likely de-escalate abx to oral meds (Keflex, Bactrim). IVDU Tobacco abuse Alcohol abuse Patient is counselled on substance abuse. CIWA Full code. Ambulation. Problem Qualifiers (1) Sepsis: Qualified Codes: A41.9 - Sepsis, unspecified organism Ernesto Flores MD Dec 15, 2017 11:23
[2017-12-15] MEDS ORDERED: PROPOFOL 200 MG/20 ML AMP IV ONE (12:00)
[2017-12-15] MEDS ORDERED: LACTATED RINGER'S 1000 ML INJ 1,000 ML IV ONE (12:00)
[2017-12-15] MEDS ORDERED: LIDOCAINE HCL 1% PF 5 ML SYRINGE OTHER ONE (12:00)
[2017-12-15] MEDS ORDERED: ceFAZolin INJ 1,000 MG VIAL IV ONE ×2 (12:00→20:23)
[2017-12-15] MEDS ORDERED: DEXAMETHASONE SOD PHOS 4 MG/ML VIAL IV ONE (12:00)
[2017-12-15] MEDS ORDERED: GLYCOPYRROLATE 1 MG/5 ML SYRINGE IV PUSH ONE (12:00)
[2017-12-15] MEDS ORDERED: ONDANSETRON HCL 4 MG/2 ML VIAL IV ONE (12:00)
[2017-12-15] MEDS ORDERED: PHARMACY ORDERED LAB ONE (17:45)
[2017-12-15] MEDS ORDERED: LIDOCAINE HCL 2% 50 ML VIAL ONE (19:24)
[2017-12-15] MEDS ORDERED: MUPIROCIN 2% OINT 22 GM TUBE ONE (19:25)
[2017-12-15] MEDS ORDERED: BUPIVACAINE HCL PF 0.5% 30 ML VIAL ONE (19:25)
[2017-12-15] MEDS ORDERED: MIDAZOLAM HCL 2 MG/2 ML VIAL ONE (19:33)
[2017-12-15] MEDS ORDERED: ACETAMINOPHEN 1000 MG/100 ML 0 ML IV ONE (19:33)
[2017-12-15] MEDS ORDERED: KETAMINE HCL 500 MG/5 ML VIAL ONE (19:34)
[2017-12-15] MEDS ORDERED: HYDROmorphone HCL PF 2 MG/ML VIAL ONE (19:34)
[2017-12-15] MEDS ORDERED: NEOMYCIN/POLYMYXIN 1 ML G.U. IRRIGANT ONE (19:35)
[2017-12-15] MEDS ORDERED: NEOMYCIN/POLYMYXIN 1 ML G.U. IRRIGANT IRRIGATION ONE (20:23)
[2017-12-15] MEDS ORDERED: DO NOT ADM ANY ANTICOAGULANT DRUGS PRN (21:00)
--- NOTE | 2017-12-15 21:01 | PD.OP ---
Operative Report Preoperative Diagnosis: (1) abscess antecubital fossa left side Postoperative Diagnosis: (1) abscess antecubital fossa left side Procedure: incision and drainage antecubital fossa abscess left elbow Anesthesia: general Surgeon: Eitan Blake Typist(s): rachel Operation and Findings: abscess cavity antecubital fossa with purulence left elbow Eitan Blake MD Dec 15, 2017 21:01
[2017-12-15] MEDS ORDERED: MORPHINE SULFATE 2 MG/ML INJ ONE (21:24)
[2017-12-15] MEDS: KETOROLAC TROMETHAMINE 30 MG/ML (IVP) VIAL IV PUSH PRN (21:30)
--- NOTE | 2017-12-15 21:37 | MP ---
cc: Eitan Blake MD DATE OF OPERATION: 12/15/2017 PREOPERATIVE DIAGNOSIS: Antecubital fossa abscess, left elbow. POSTOPERATIVE DIAGNOSIS: Antecubital abscess, left elbow. PROCEDURE PERFORMED: Incision and drainage antecubital fossa abscess, left elbow. SURGEON: Eitan Blake MD ANESTHESIA: General. ESTIMATED BLOOD LOSS: 10 mL TOURNIQUET TIME: 18 minutes at 250 mmHg. SPECIMENS: Sent for culture and sensitivity. DISPOSITION: To PACU, stable. This is a 27-year-old right-hand dominant male with a history of IV drug abuse, presented with complaints of pain, swelling over the left elbow region after IV drug abuse, but for the past 2-3 days on examination, he had tenderness, induration and fluctuation over the antecubital fossa. Ultrasound showed a hypoechoic collection measuring about 3.1 x 2.6 x 1 cm in the antecubital fossa. The patient also had an elevated white count of 11.7 and shift of 73%. The patient was consented for incision and drainage of left antecubital fossa abscess. The patient was explained the risks and benefits of the procedure. The patient was brought to the operating room under general anesthesia. The left upper extremity was sterilely prepped and draped. After limb elevation, tourniquet was inflated to 250 mmHg. Incision site was marked in a curvilinear fashion over the volar ulnar aspect of the elbow, corresponding to the fluctuation measuring about 3-4 cm. Incision was made over the proposed incision site. Using cautery vessels were cauterized. There was no collection in the subcutaneous location. The fascia over the region was bulging. Incision was made in the fascia and drainage of the abscess cavity underneath the fascia. There was evidence of cata purulence within the region. Material was sent for culture and sensitivity. Using finger dissection pockets were broken which extended all the way to the mid to lateral aspect of the anterior aspect of the elbow region in both the proximal aspect of the forearm in the distal aspect. Thorough wash was given using normal saline mixed with hydrogen peroxide. This was then followed by normal saline mixed with irrigant. No further evidence of pockets were noted intraoperatively. Tourniquet was deflated. Total tourniquet time was 18 minutes. He had good distal circulation after release of tourniquet. Bleeding points were cauterized with bipolar cautery. Packing of the abscess cavity was carried out using half inch iodoform packing material. The skin incision was loosely approximated using 4-0 nylon in a horizontal mattress interrupted fashion. Bulky dressing was applied which was held in place by Sof-Roll and a bias hand wrap. The patient was recovered and sent to recovery room in stable condition. The plan will be to continue with IV antibiotics and change the packing tomorrow. Eitan Blake MD SE/rt , 09:06 PM , 09:36 PM ANSHUL
[2017-12-16] VITALS (9 sets, daily range): BP systolic 105–134; BP diastolic 54–77; PULSE 76–105; RESP 16–20; TEMP 97.2–99.3; O2SAT 95–100
[2017-12-16] MEDS: VANCOMYCIN INJ 900 MG in SODIUM CHLOR 0.9% 250 ML INJ 250 ML IV SCH ×3 (03:02→18:31)
[2017-12-16] MEDS: NS + KCL 20 MEQ INJ 1,000 ML IV SCH ×2 (03:03→16:41)
--- NOTE | 2017-12-16 09:34 | MB ---
cc: Eitan Blake MD DATE: 12/15/2017 REASON FOR CONSULTATION: Left elbow abscess. HISTORY OF PRESENT ILLNESS: The patient is a 27-year-old male with history of IV drug abuse, who presented to the ED with complaints of pain and swelling over the left elbow region of 6-7 days duration. The patient gives a history of IV heroin abuse. The patient also states he was in [place] [facility] and did not clean the area while using the drugs, hence, he got infection of the left elbow region. The patient was admitted 2 days ago. He was found to have abscess of the left antecubital fossa. Initially, Orthopedics was consulted and who later wanted hand surgery to be consulted. The patient complains of pain, swelling over the left elbow region. Denies any fever. Denies any tingling, numbness. Denies any drainage. PAST MEDICAL AND SURGICAL HISTORY: Are noted. PHYSICAL EXAMINATION: GENERAL: The patient is alert, oriented x 3. MUSCULOSKELETAL: Examination of left upper extremity reveals swelling and erythema over the antecubital fossa, more so on the volar and medial aspect. Tenderness and induration noted over the region. Fluctuation noted over the region. There is increased warmth over the antecubital fossa. The forearm compartments are supple. Elbow range of motion, terminal degrees of flexion and extension is painful. He is able to make a full fist. He has full extension of the fingers. He has palpable distal pulses. LABORATORY DATA: His white count was reviewed, it is 11.7, trending down from 16.8. He has a neutrophil shift of 73%. IMAGING: X-rays of the left upper extremity shows soft tissue swelling over the elbow region. The patient had an ultrasound of the left upper extremity, which shows phlegmonous mass collection measuring about 3 x 2.6 x 1.5 cm mass. Fluid collection in the left medial antecubital area. ASSESSMENT: This is a 27-year-old male with left antecubital fossa abscess. PLAN: Will be to take the patient emergently for incision and drainage. We will keep the patient n.p.o. and will continue with antibiotics. Eitan Blake MD SESHELBIE , 05:42 PM , 06:12 PM ANSHUL
[2017-12-16] MEDS: KETOROLAC TROMETHAMINE 30 MG/ML (IVP) VIAL IV PUSH PRN (10:24)
[2017-12-16] MEDS: THIAMINE HCL 100 MG TAB PO SCH (10:24)
[2017-12-16] MEDS: FOLIC ACID 1 MG TAB PO SCH (10:25)
[2017-12-16] MEDS: LORazepam 1 MG TAB PO PRN (10:25)
[2017-12-16] MEDS: MULTIVITAMINS/MINERALS THERAPEUTIC TAB PO SCH (10:25)
[2017-12-16] MEDS: SODIUM CHLORIDE 0.9% FLUSH 10 ML FLUSH IV FLUSH SCH ×2 (10:26→23:04)
[2017-12-16] MEDS: NICOTINE 21 MG/24 HR PATCH T-DERMAL SCH (10:38)
--- NOTE | 2017-12-16 10:42 | HHI.PR ---
Subjective Remarks Follow-up for left arm cellulitis and abscess Patient asking for nicotine patch. He is also asking when he can be discharged. Otherwise no other complaints. Objective Vitals Vital Signs Date Time Temp Pulse Resp B/P (MAP) Pulse Ox O2 Delivery O2 Flow Rate FiO2 12/16/17 08:00 97.5 86 18 105/54 (71) 98 12/16/17 04:00 97.2 87 18 128/67 (87) 95 12/16/17 01:51 92 12/16/17 00:00 98.7 100 18 134/77 (96) 97 12/15/17 21:45 82 14 136/72 (93) 100 Nasal Cannula 3 12/15/17 21:30 71 11 116/65 (82) 100 Nasal Cannula 4 12/15/17 21:15 97.7 71 11 108/58 (75) 100 Nasal Cannula 4 12/15/17 20:00 97.5 116 16 144/88 (106) 98 12/15/17 16:00 97.6 70 18 128/60 (82) 100 12/15/17 12:00 97.9 73 16 120/72 (88) 99 I/O 12/15/17 12/15/17 12/15/17 12/16/17 12/16/17 12/16/17 07:00 15:00 23:00 07:00 15:00 23:00 Intake Total 1116.5 ml 1400 ml 2059 ml Output Total 10 ml 800 ml Balance 1116.5 ml 1390 ml 1259 ml Intake Oral 600 ml 800 ml IV Total 516.5 ml 1400 ml 1259 ml Output Urine Total 800 ml Estimated Blood Loss 10 ml # Voids 3 3 # Bowel Movements 0 1 0 Result Diagram: 12/14/176 12/14/17445 Objective Remarks GENERAL: in NAD SKIN: left arm in bandages. sensation of fingers/hand intact. CARDIOVASCULAR: Regular rate and rhythm without murmurs, gallops, or rubs. RESPIRATORY: Breath sounds equal bilaterally. No accessory muscle use. GASTROINTESTINAL: Abdomen soft, non-tender, nondistended. Medications and IVs Current Medications Vancomycin HCl 1000 mg/Sodium Chloride 250 ml @ 250 mls/hr ONCE ONCE IV Last administered on 12/13/17at 18:26; Start 12/13/17 at 18:15; Stop 12/13/17 at 19:14 ; Status DC Ketorolac Tromethamine (Toradol Inj) 30 mg ONCE ONCE IV PUSH Last administered on 12/13/17at 18:27; Start 12/13/17 at 18:15; Stop 12/13/17 at 18:16 ; Status DC Nicotine (Habitrol 14 Mg Patch.24 Hr) 1 patch ONCE ONCE T-DERMAL Last administered on 12/13/17at 18:27; Start 12/13/17 at 18:15; Stop 12/13/17 at 18:16 ; Status DC Pharmacy Profile Note 0 ml @ 0 mls/hr UNSCH OTHER ; Start 12/13/17 at 18:15 Sodium Chloride (NS Flush) 2 ml UNSCH PRN IV FLUSH FLUSH AFTER USING IV ACCESS ; Start 12/13/17 at 18:15 Sodium Chloride (NS Flush) 2 ml BID IV FLUSH Last administered on 12/16/17at 10: 26; Start 12/13/17 at 21:00 Naloxone HCl (Narcan Inj) 0.4 mg UNSCH PRN IV PUSH SEE LABEL COMMENTS; Start at 18:15 Magnesium Hydroxide (Milk Of Magnesia Liq) 30 ml Q12H PRN PO Mild constipation ; Start 12/13/17 at 18:15 Sennosides (Senokot) 17.2 mg Q12H PRN PO Moderate constipation; Start 12/13/17 at 18:15 Bisacodyl (Dulcolax Supp) 10 mg DAILY PRN RECTAL SEVERE CONSITIPATION; Start at 18:15 Lactulose (Lactulose Liq) 30 ml DAILY PRN PO SEVERE CONSITIPATION; Start at 18:15 Vancomycin HCl 750 mg/Sodium Chloride 257.5 ml @ 250 mls/hr Q8H IV Last administered on 12/14/17at 18:20; Start 12/14/17 at 02:00; Stop 12/14/17 at 18:22 ; Status DC Miscellaneous Information SPECIFIC LAB TO BE PHILLIP... ONCE ONCE .XX Last administered on 12/14/17at 17:52; Start 12/14/17 at 17:45; Stop 12/14/17 at 17:46 ; Status DC Lorazepam (Ativan Inj) 1 mg Q4H PRN IV PUSH withdrawal symptoms Last administered on 12/14/17at 17:52; Start 12/13/17 at 23:15; Stop 12/14/17 at 19:39 ; Status DC Pneumococcal Polyvalent Vaccine (Pneumovax-23 Inj) 25 mcg ONCE ONCE IM Last administered on 12/15/17at 09:16; Start 12/15/17 at 10:00; Stop 12/15/17 at 10:01 ; Status DC Influenza Virus Vaccine (Flu (Quadrivalent) Vaccine Inj) 0.5 ml ONCE ONCE IM Last administered on 12/15/17at 09:18; Start 12/15/17 at 10:00; Stop 12/15/17 at 10:01; Status DC Vancomycin HCl 900 mg/Sodium Chloride 259 ml @ 250 mls/hr Q8H IV Last administered on 12/16/17at 10:26; Start 12/15/17 at 02:00 Miscellaneous Information SPECIFIC LAB TO BE DRAWN:VA... ONCE ONCE .XX Last administered on 12/15/17at 17:16; Start 12/15/17 at 17:45; Stop 12/15/17 at 17:46 ; Status DC Folic Acid (Folate) 1 mg DAILY PO Last administered on 12/16/17at 10:25; Start 12/15/17 at 09:00; Stop 12/20/17 at 08:59 Thiamine HCl (Vitamin B1) 100 mg DAILY PO Last administered on 12/16/17at 10:24 ; Start 12/15/17 at 09:00 Multivitamins/ Minerals Therapeutic (Theragran M Tab) 1 tab DAILY PO Last administered on 12/16/17at 10:25; Start 12/15/17 at 09:00; Stop 12/20/17 at 08:59 Flumazenil (Romazicon Inj) 0.2 mg Q1M PRN IV PUSH SEE LABEL COMMENTS; Start at 19:45 Lorazepam (Ativan) 1 mg Q4H PRN PO CIWA 8 - 10 Last administered on 12/16/17at 10:25; Start 12/14/17 at 19:45 Lorazepam (Ativan Inj) 1 mg Q4H PRN IV PUSH CIWA 8 - 10; Start 12/14/17 at 19: 45 Lorazepam (Ativan) 2 mg Q2H PRN PO CIWA 11-14 Last administered on 12/15/17at 22 :37; Start 12/14/17 at 19:45 Lorazepam (Ativan Inj) 2 mg Q2H PRN IV PUSH CIWA 11-14; Start 12/14/17 at 19:45 Lorazepam (Ativan Inj) 2 mg Q1H PRN IV PUSH CIWA 15-20 Last administered on at 06:36; Start 12/14/17 at 19:45 Lorazepam (Ativan Inj) 2 mg Q15M PRN IV PUSH CIWA > 20; Start 12/14/17 at 19:45 Haloperidol Lactate (Haldol Inj) 2 mg Q15M PRN IM SEE LABEL COMMENTS; Start at 19:45 Potassium Chloride/Sodium Chloride 1,000 ml @ 84 mls/hr [id number] IV Last administered on 12/16/17at 03:03; Start 12/15/17 at 08:00 Acetaminophen (Tylenol) 650 mg Q6H PRN PO PAIN SCALE 1 TO 2; Start 12/15/17 at 08:00 Ketorolac Tromethamine (Toradol Inj) 15 mg Q6H PRN IV PUSH Pain 3-5; if unable to take PO Last administered on 12/16/17at 10:24; Start 12/15/17 at 08:00; Stop 12/20/17 at 07:59 Ketorolac Tromethamine (Toradol Inj) 30 mg Q6H PRN IV PUSH Pain 6-10;if unable to take PO Last administered on 12/15/17at 21:30; Start 12/15/17 at 08:00; Stop 12/20/17 at 07:59 Lidocaine HCl (Xylocaine 2% Inj) 50 ml STK-MED ONCE .ROUTE Last administered on 12/15/17at 20:23; Start 12/15/17 at 19:24; Stop 12/15/17 at 19:25; Status DC Bupivacaine HCl (Marcaine Pf 0.5% Inj) 30 ml STK-MED ONCE .ROUTE ; Start at 19:25; Stop 12/15/17 at 19:26; Status DC Mupirocin (Bactroban 2% Oint) 22 applic STK-MED ONCE .ROUTE ; Start 12/15/17 at 19:25; Stop 12/15/17 at 19:26; Status DC Acetaminophen 0 ml @ As Directed STK-MED ONCE IV ; Start 12/15/17 at 19:33; Stop 12/15/17 at 19:34; Status DC Fentanyl Citrate (fentaNYL INJ) 100 mcg STK-MED ONCE .ROUTE ; Start 12/15/17 at 19:33; Stop 12/15/17 at 19:34; Status DC Midazolam HCl (Versed Inj) 2 mg STK-MED ONCE .ROUTE ; Start 12/15/17 at 19:33; Stop 12/15/17 at 19:34; Status DC Ketamine HCl (Ketalar Inj) 500 mg STK-MED ONCE .ROUTE ; Start 12/15/17 at 19:34 ; Stop 12/15/17 at 19:35; Status DC Hydromorphone HCl (Dilaudid Pf Inj) 2 mg STK-MED ONCE .ROUTE ; Start 12/15/17 at 19:34; Stop 12/15/17 at 19:35; Status DC Neomycin/Polymyxin (Neosporin G.u. Irr) 1 ml STK-MED ONCE .ROUTE ; Start at 19:35; Stop 12/15/17 at 19:36; Status DC Miscellaneous Information SPECIFIC LAB TO BE DRAWN: VANCO TROUGH DATE TO BE DR... ONCE ONCE .XX ; Start 12/16/17 at 17:45; Stop 12/16/17 at 17:46 Neomycin/Polymyxin (Neosporin G.u. Irr) 1 ml ONCE ONCE IRRIGATION Last administered on 12/15/17at 20:23; Start 12/15/17 at 20:23; Stop 12/15/17 at 21:15 ; Status DC Cefazolin Sodium (Ancef Inj) 2,000 mg ONCE ONCE IV Last administered on at 20:38; Start 12/15/17 at 20:23; Stop 12/15/17 at 20:38; Status DC Miscellaneous Information ALL NURSING DEPARTME... UNSCH PRN .XX SEE LABEL COMMENTS; Start 12/15/17 at 21:00; Stop 12/16/17 at 20:59 Morphine Sulfate (Morphine Inj) 2 mg STK-MED ONCE .ROUTE ; Start 12/15/17 at 21: 24; Stop 12/15/17 at 21:25; Status DC Nicotine (Habitrol 21 Mg Patch.24 Hr) 1 patch DAILY T-DERMAL Last administered on 12/16/17at 10:38; Start 12/16/17 at 10:15 Miscellaneous Information 1 HS T-DERMAL ; Start 12/16/17 at 21:00 A/P Problem List: (1) Sepsis ICD Code: A41.9 - Sepsis, unspecified organism Status: Acute (2) Cellulitis of left arm ICD Code: L03.114 - Cellulitis of left upper limb (3) IVDU (intravenous drug user) ICD Code: F19.90 - Other psychoactive substance use, unspecified, uncomplicated Assessment and Plan Mr. Alvarado is a pleasant 27-year-old male with a history of IV drug use who presented to the emergency department on 12/13/2017 due to left arm swelling, pain, fever and chills. He denies using left arm for IV drug use recently. He has been using IV drugs for almost 8 years. Sepsis (tachycardia, resp rate 22, WBC elevated to 16.8K, known infection cellulitis). -See treatment as above. He was placed on IV antibiotics and given IV fluids. Resolved. Left arm cellulitis with left antecubital fossa abscess -Ultrasound indicates fluid collection in the antecubital fossa. -Status post Incision and drainage antecubital fossa abscess, left elbow -continue vancomycin for now. Keep trough level between 15-20. -Pending blood cultures. -We will consult infectious disease to assist with antibiotics. IVDU Tobacco abuse Alcohol abuse -Patient is counselled on substance abuse. CIWA -We will place on nicotine patch. Discharge Planning Pending wound cultures and blood cultures before discharge. Problem Qualifiers (1) Sepsis: Qualified Codes: A41.9 - Sepsis, unspecified organism Vangie Osuna MD Dec 16, 2017 10:42
--- NOTE | 2017-12-16 13:30 | MB ---
cc: Gagandeep Boggs MD DATE: 12/16/2017 REQUESTING PHYSICIAN: Dr. Osuna REASON: IVDU with cellulitis and abscess of the left arm. HISTORY OF PRESENT ILLNESS: This is a 27-year-old white male who has history of IV drug use. The patient injected heroin into his left arm and developed swelling and erythema. He presented to the emergency department with pain after 5 days. He presented to the emergency department on 12/13/17. The patient was evaluated and admitted to the hospital and surgical consult was obtained. The patient was taken to surgery for incision and debridement yesterday evening. There was evidence of cata purulence within the wound which involved the antecubital area and the anterior aspect of the elbow and proximal aspect of the forearm. Culture was taken and the result is not yet available. Gram stain of the fluid showed gram-positive cocci in pairs and clusters. The patient has no history of MRSA. PAST MEDICAL HISTORY: Hepatitis C. ALLERGIES: NO KNOWN DRUG ALLERGIES. MEDICATIONS: Theragran, thiamine, folate, vancomycin, Toradol. SOCIAL HISTORY: Positive tobacco, 1 pack a day. Positive alcohol in the form of beer daily. Positive IV drug use over the past 6 months. The patient states prior to that he used Suboxone. FAMILY HISTORY: Noncontributory. REVIEW OF SYSTEMS: Negative except for pain 4/10 at the left arm. PHYSICAL EXAMINATION: GENERAL: Well-developed male is in no acute distress. He is awake and alert and oriented. VITAL SIGNS: Include temperature 97.5, BP 105/54, respirations 18, heart rate 86. HEENT: The head is atraumatic. Extraocular movements grossly intact. Pupils reactive to light. No icterus. Oropharynx: Moist mucosa. No lesions. NECK: Supple, no adenopathy. LUNGS: Clear to auscultation. HEART: Regular S1, S2, without murmurs, rubs or gallops. ABDOMEN: Bowel sounds present. Soft, nontender. RECTAL: Exam not performed. EXTREMITIES: The left arm is wrapped in a surgical dressing from the wrist all the way up to the mid-humerus area. There is no visible erythema at the fingers and motion at the fingers are intact. SKIN: No diffuse rash. NEUROLOGIC: Nonfocal. PSYCHIATRIC: The patient is calm and cooperative. LABORATORY DATA: WBC 11.7, platelets 267, 73% neutrophils, 15% lymphocytes, 9% monocytes, hemoglobin 13.2. Creatinine 0.61, BUN 12, sodium 137. Liver function tests normal. IMPRESSION: Wound infection of the left upper extremity with abscess following intravenous drug use injected into the left arm. Culture pending. RECOMMENDATIONS: 1. Continue vancomycin. 2. Monitor the identity of the bacteria in the cultures. 3. Antibiotic adjustment depending on culture results. 4. The patient is being followed by the hand surgeon. I will be unavailable for the next week. The patient will be followed by another infectious disease available for coverage. Please call the ID physician business division chair on the weekend when the culture becomes available. MD RUBY Soto/NO , 12:26 PM , 01:28 PM
[2017-12-16] MEDS: LORazepam 2 MG TAB PO PRN ×2 (16:35→22:59)
[2017-12-16] MEDS ORDERED: PHARMACY ORDERED LAB ONE (17:45)
--- NOTE | 2017-12-16 19:12 | HHI.PR ---
Subjective Remarks complains of mild pain no fever no numbness Objective Vital Signs Date Time Temp Pulse Resp B/P (MAP) Pulse Ox O2 Delivery O2 Flow Rate FiO2 12/16/17 16:00 98.1 76 16 115/60 (78) 100 12/16/17 12:00 98.0 76 16 113/56 (75) 99 12/16/17 08:00 97.5 86 18 105/54 (71) 98 12/16/17 04:00 97.2 87 18 128/67 (87) 95 12/16/17 01:51 92 12/16/17 00:00 98.7 100 18 134/77 (96) 97 12/15/17 21:45 82 14 136/72 (93) 100 Nasal Cannula 3 12/15/17 21:30 71 11 116/65 (82) 100 Nasal Cannula 4 12/15/17 21:15 97.7 71 11 108/58 (75) 100 Nasal Cannula 4 12/15/17 20:00 97.5 116 16 144/88 (106) 98 I/O 12/15/17 12/15/17 12/15/17 12/16/17 12/16/17 12/16/17 07:00 15:00 23:00 07:00 15:00 23:00 Intake Total 1116.5 ml 1400 ml 2059 ml 2200 ml Output Total 10 ml 800 ml Balance 1116.5 ml 1390 ml 1259 ml 2200 ml Intake Oral 600 ml 800 ml 2200 ml IV Total 516.5 ml 1400 ml 1259 ml Output Urine Total 800 ml Estimated Blood Loss 10 ml # Voids 3 3 4 # Bowel Movements 0 1 0 2 left elbow: dressing in place packing in place decreased swelling and erythema minimal drainage intact sensation forearm compartments are supple Result Diagram: 12/14/17 0446 12/14/17 0446 Assessment and Plan Assessment and Plan 27 year old male s/p I and D left antecubital abscess POD 1 Plan: packing pulled out 1-2 cms dry dressing applied continue with IV antibiotics hand surgery will follow Eitan Blake MD Dec 16, 2017 19:12
[2017-12-16] MEDS: REMOVE OLD PATCH T-DERMAL SCH (21:00)
[2017-12-17] VITALS (8 sets, daily range): BP systolic 104–130; BP diastolic 55–76; PULSE 71–87; RESP 14–20; TEMP 97.7–99.7; O2SAT 96–99
[2017-12-17] MEDS: VANCOMYCIN INJ 900 MG in SODIUM CHLOR 0.9% 250 ML INJ 250 ML IV SCH ×3 (01:31→18:09)
[2017-12-17] MEDS: LORazepam 2 MG TAB PO PRN (05:27)
[2017-12-17] MEDS: NS + KCL 20 MEQ INJ 1,000 ML IV SCH ×2 (05:30→20:00)
[2017-12-17 07:20] LABS: HEMATOCRIT 33.9 % (39.0-51.0); HEMOGLOBIN 11.6 GM/DL (13.0-17.0); MEAN CELL VOLUME 84.9 FL (80.0-100.0); MEAN CORPUSCULAR HEMOGLOBIN 29.1 PG (27.0-34.0); MEAN CORPUSCULAR HGB CONC 34.3 % (32.0-36.0); MEAN PLATELET VOLUME 6.4 FL (7.0-11.0); PLATELET COUNT 228 TH/MM3 (150-450); RED CELL DISTRIBUTION WIDTH 13.3 % (11.6-17.2); WHITE BLOOD COUNT 7.4 TH/MM3 (4.0-11.0)
[2017-12-17 07:49] LABS: BICARBONATE 26.7 MEQ/L (21.0-32.0); CALCIUM 8.3 MG/DL (8.5-10.1); CREATININE 0.62 MG/DL (0.60-1.30)
[2017-12-17] MEDS: THIAMINE HCL 100 MG TAB PO SCH (08:09)
[2017-12-17] MEDS: NICOTINE 21 MG/24 HR PATCH T-DERMAL SCH (08:09)
[2017-12-17] MEDS: MULTIVITAMINS/MINERALS THERAPEUTIC TAB PO SCH (08:09)
[2017-12-17] MEDS: FOLIC ACID 1 MG TAB PO SCH (08:09)
[2017-12-17] MEDS: SODIUM CHLORIDE 0.9% FLUSH 10 ML FLUSH IV FLUSH SCH ×2 (08:10→20:00)
[2017-12-17] MEDS: KETOROLAC TROMETHAMINE 30 MG/ML (IVP) VIAL IV PUSH PRN ×2 (08:20→20:00)
--- NOTE | 2017-12-17 10:14 | HHI.PR ---
Subjective Remarks f/u for left arm cellulitis and abscess s/p I&D patient has no complaints. he stated he feels well. no fevers overnight. Objective Vitals Vital Signs Date Time Temp Pulse Resp B/P (MAP) Pulse Ox O2 Delivery O2 Flow Rate FiO2 12/17/17 08:00 98.3 79 16 116/66 (83) 99 12/17/17 04:42 98.5 75 20 115/58 (77) 98 12/17/17 00:00 97.7 82 18 115/59 (77) 96 12/16/17 22:37 105 12/16/17 20:00 99.3 97 20 131/71 (91) 97 12/16/17 19:11 85 12/16/17 16:00 98.1 76 16 115/60 (78) 100 12/16/17 12:00 98.0 76 16 113/56 (75) 99 I/O 12/16/17 12/16/17 12/16/17 12/17/17 12/17/17 12/17/17 07:00 15:00 23:00 07:00 15:00 23:00 Intake Total 2059 ml 259 ml 3200 ml 2039 ml Output Total 800 ml Balance 1259 ml 259 ml 3200 ml 2039 ml Intake Oral 800 ml 2200 ml 780 ml IV Total 1259 ml 259 ml 1000 ml 1259 ml Output Urine Total 800 ml # Voids 4 4 # Bowel Movements 0 2 0 Result Diagram: 12/17/17 0633 12/17/17 0633 Objective Remarks GENERAL: in NAD SKIN: left arm in bandages. sensation of fingers/hand intact. CARDIOVASCULAR: Regular rate and rhythm without murmurs, gallops, or rubs. RESPIRATORY: Breath sounds equal bilaterally. No accessory muscle use. GASTROINTESTINAL: Abdomen soft, non-tender, nondistended. Medications and IVs Current Medications Vancomycin HCl 1000 mg/Sodium Chloride 250 ml @ 250 mls/hr ONCE ONCE IV Last administered on 12/13/17at 18:26; Start 12/13/17 at 18:15; Stop 12/13/17 at 19:14 ; Status DC Ketorolac Tromethamine (Toradol Inj) 30 mg ONCE ONCE IV PUSH Last administered on 12/13/17at 18:27; Start 12/13/17 at 18:15; Stop 12/13/17 at 18:16 ; Status DC Nicotine (Habitrol 14 Mg Patch.24 Hr) 1 patch ONCE ONCE T-DERMAL Last administered on 12/13/17at 18:27; Start 12/13/17 at 18:15; Stop 12/13/17 at 18:16 ; Status DC Pharmacy Profile Note 0 ml @ 0 mls/hr UNSCH OTHER ; Start 12/13/17 at 18:15 Sodium Chloride (NS Flush) 2 ml UNSCH PRN IV FLUSH FLUSH AFTER USING IV ACCESS ; Start 12/13/17 at 18:15 Sodium Chloride (NS Flush) 2 ml BID IV FLUSH Last administered on 12/16/17at 23: 04; Start 12/13/17 at 21:00 Naloxone HCl (Narcan Inj) 0.4 mg UNSCH PRN IV PUSH SEE LABEL COMMENTS; Start at 18:15 Magnesium Hydroxide (Milk Of Magnesia Liq) 30 ml Q12H PRN PO Mild constipation ; Start 12/13/17 at 18:15 Sennosides (Senokot) 17.2 mg Q12H PRN PO Moderate constipation; Start 12/13/17 at 18:15 Bisacodyl (Dulcolax Supp) 10 mg DAILY PRN RECTAL SEVERE CONSITIPATION; Start at 18:15 Lactulose (Lactulose Liq) 30 ml DAILY PRN PO SEVERE CONSITIPATION; Start at 18:15 Vancomycin HCl 750 mg/Sodium Chloride 257.5 ml @ 250 mls/hr Q8H IV Last administered on 12/14/17at 18:20; Start 12/14/17 at 02:00; Stop 12/14/17 at 18:22 ; Status DC Miscellaneous Information SPECIFIC LAB TO BE ... ONCE ONCE .XX Last administered on 12/14/17at 17:52; Start 12/14/17 at 17:45; Stop 12/14/17 at 17:46 ; Status DC Lorazepam (Ativan Inj) 1 mg Q4H PRN IV PUSH withdrawal symptoms Last administered on 12/14/17at 17:52; Start 12/13/17 at 23:15; Stop 12/14/17 at 19:39 ; Status DC Pneumococcal Polyvalent Vaccine (Pneumovax-23 Inj) 25 mcg ONCE ONCE IM Last administered on 12/15/17 09:16; Start 12/15/17 at 10:00; Stop 12/15/17 at 10:01 ; Status DC Influenza Virus Vaccine (Flu (Quadrivalent) Vaccine Inj) 0.5 ml ONCE ONCE IM Last administered on 12/15/17at 09:18; Start 12/15/17 at 10:00; Stop 12/15/17 at 10:01; Status DC Vancomycin HCl 900 mg/Sodium Chloride 259 ml @ 250 mls/hr Q8H IV Last administered on 12/17/17 08:09; Start 12/15/17 at 02:00 Miscellaneous Information SPECIFIC LAB TO BE DRAWN:VA... ONCE ONCE .XX Last administered on 12/15/17at 17:16; Start 12/15/17 at 17:45; Stop 12/15/17 at 17:46 ; Status DC Folic Acid (Folate) 1 mg DAILY PO Last administered on 12/17/17 08:09; Start 12/15/17 at 09:00; Stop 12/20/17 at 08:59 Thiamine HCl (Vitamin B1) 100 mg DAILY PO Last administered on 12/17/17 08:09 ; Start 12/15/17 at 09:00 Multivitamins/ Minerals Therapeutic (Theragran M Tab) 1 tab DAILY PO Last administered on 12/17/17at 08:09; Start 12/15/17 at 09:00; Stop 12/20/17 at 08:59 Flumazenil (Romazicon Inj) 0.2 mg Q1M PRN IV PUSH SEE LABEL COMMENTS; Start at 19:45 Lorazepam (Ativan) 1 mg Q4H PRN PO CIWA 8 - 10 Last administered on 12/16/17at 10:25; Start 12/14/17 at 19:45 Lorazepam (Ativan Inj) 1 mg Q4H PRN IV PUSH CIWA 8 - 10; Start 12/14/17 at 19: 45 Lorazepam (Ativan) 2 mg Q2H PRN PO CIWA 11-14 Last administered on 12/17/17at 05 :27; Start 12/14/17 at 19:45 Lorazepam (Ativan Inj) 2 mg Q2H PRN IV PUSH CIWA 11-14; Start 12/14/17 at 19:45 Lorazepam (Ativan Inj) 2 mg Q1H PRN IV PUSH CIWA 15-20 Last administered on at 06:36; Start 12/14/17 at 19:45 Lorazepam (Ativan Inj) 2 mg Q15M PRN IV PUSH CIWA > 20; Start 12/14/17 at 19:45 Haloperidol Lactate (Haldol Inj) 2 mg Q15M PRN IM SEE LABEL COMMENTS; Start at 19:45 Potassium Chloride/Sodium Chloride 1,000 ml @ 84 mls/hr [id number] IV Last administered on 12/17/17at 05:30; Start 12/15/17 at 08:00 Acetaminophen (Tylenol) 650 mg Q6H PRN PO PAIN SCALE 1 TO 2; Start 12/15/17 at 08:00 Ketorolac Tromethamine (Toradol Inj) 15 mg Q6H PRN IV PUSH Pain 3-5; if unable to take PO Last administered on 12/17/17at 08:20; Start 12/15/17 at 08:00; Stop 12/20/17 at 07:59 Ketorolac Tromethamine (Toradol Inj) 30 mg Q6H PRN IV PUSH Pain 6-10;if unable to take PO Last administered on 12/15/17at 21:30; Start 12/15/17 at 08:00; Stop 12/20/17 at 07:59 Lidocaine HCl (Xylocaine 2% Inj) 50 ml STK-MED ONCE .ROUTE Last administered on 12/15/17at 20:23; Start 12/15/17 at 19:24; Stop 12/15/17 at 19:25; Status DC Bupivacaine HCl (Marcaine Pf 0.5% Inj) 30 ml STK-MED ONCE .ROUTE ; Start at 19:25; Stop 12/15/17 at 19:26; Status DC Mupirocin (Bactroban 2% Oint) 22 applic STK-MED ONCE .ROUTE ; Start 12/15/17 at 19:25; Stop 12/15/17 at 19:26; Status DC Acetaminophen 0 ml @ As Directed STK-MED ONCE IV ; Start 12/15/17 at 19:33; Stop 12/15/17 at 19:34; Status DC Fentanyl Citrate (fentaNYL INJ) 100 mcg STK-MED ONCE .ROUTE ; Start 12/15/17 at 19:33; Stop 12/15/17 at 19:34; Status DC Midazolam HCl (Versed Inj) 2 mg STK-MED ONCE .ROUTE ; Start 12/15/17 at 19:33; Stop 12/15/17 at 19:34; Status DC Ketamine HCl (Ketalar Inj) 500 mg STK-MED ONCE .ROUTE ; Start 12/15/17 at 19:34 ; Stop 12/15/17 at 19:35; Status DC Hydromorphone HCl (Dilaudid Pf Inj) 2 mg STK-MED ONCE .ROUTE ; Start 12/15/17 at 19:34; Stop 12/15/17 at 19:35; Status DC Neomycin/Polymyxin (Neosporin G.u. Irr) 1 ml STK-MED ONCE .ROUTE ; Start at 19:35; Stop 12/15/17 at 19:36; Status DC Miscellaneous Information SPECIFIC LAB TO BE DRAWN: VANCO TROUGH DATE TO BE DR... ONCE ONCE .XX Last administered on 12/16/17at 17:45; Start 12/16/17 at 17 :45; Stop 12/16/17 at 17:46; Status DC Neomycin/Polymyxin (Neosporin G.u. Irr) 1 ml ONCE ONCE IRRIGATION Last administered on 12/15/17at 20:23; Start 12/15/17 at 20:23; Stop 12/15/17 at 21:15 ; Status DC Cefazolin Sodium (Ancef Inj) 2,000 mg ONCE ONCE IV Last administered on at 20:38; Start 12/15/17 at 20:23; Stop 12/15/17 at 20:38; Status DC Miscellaneous Information ALL NURSING DEPARTME... UNSCH PRN .XX SEE LABEL COMMENTS; Start 12/15/17 at 21:00; Stop 12/16/17 at 20:59; Status DC Morphine Sulfate (Morphine Inj) 2 mg STK-MED ONCE .ROUTE ; Start 12/15/17 at 21: 24; Stop 12/15/17 at 21:25; Status DC Nicotine (Habitrol 21 Mg Patch.24 Hr) 1 patch DAILY T-DERMAL Last administered on 12/17/17at 08:09; Start 12/16/17 at 10:15 Miscellaneous Information 1 HS T-DERMAL Last administered on 12/16/17at 21:00; Start 12/16/17 at 21:00 Miscellaneous Information SPECIFIC LAB TO BE .. ONCE ONCE .XX ; Start 12/18 at 01:45; Stop 12/18/17 at 01:46 A/P Problem List: (1) Sepsis ICD Code: A41.9 - Sepsis, unspecified organism Status: Acute (2) Cellulitis of left arm ICD Code: L03.114 - Cellulitis of left upper limb (3) IVDU (intravenous drug user) ICD Code: F19.90 - Other psychoactive substance use, unspecified, uncomplicated Assessment and Plan Mr. Alvarado is a pleasant 27-year-old male with a history of IV drug use who presented to the emergency department on 12/13/2017 due to left arm swelling, pain, fever and chills. He denies using left arm for IV drug use recently. He has been using IV drugs for almost 8 years. Sepsis (tachycardia, resp rate 22, WBC elevated to 16.8K, known infection cellulitis). -See treatment as above. He was placed on IV antibiotics and given IV fluids. Resolved. Left arm cellulitis with left antecubital fossa abscess -Ultrasound indicates fluid collection in the antecubital fossa. -Status post Incision and drainage antecubital fossa abscess, left elbow -continue vancomycin for now. Keep trough level between 15-20. -blood cultures negative so far. -ID consulted and stated continue with current management pending cultures. -hand surgeon ff and stated continue with IV antibiotics. IVDU Tobacco abuse Alcohol abuse -Patient is counselled on substance abuse. CIWA -on nicotine patch. Discharge Planning Pending final wound cultures and clearance from hand surgeon before discharge. Problem Qualifiers (1) Sepsis: Qualified Codes: A41.9 - Sepsis, unspecified organism Vangie Osuna MD Dec 17, 2017 10:14
--- NOTE | 2017-12-17 18:12 | HHI.PR ---
Subjective Remarks complains of no pain no fever no numbness Objective Vital Signs Date Time Temp Pulse Resp B/P (MAP) Pulse Ox O2 Delivery O2 Flow Rate FiO2 12/17/17 16:00 99.7 75 16 130/68 (88) 99 12/17/17 12:00 74 12/17/17 12:00 98.3 71 14 104/55 (71) 98 12/17/17 08:00 98.3 79 16 116/66 (83) 99 12/17/17 04:42 98.5 75 20 115/58 (77) 98 12/17/17 00:00 97.7 82 18 115/59 (77) 96 12/16/17 22:37 105 12/16/17 20:00 99.3 97 20 131/71 (91) 97 12/16/17 19:11 85 I/O 12/16/17 12/16/17 12/16/17 12/17/17 12/17/17 12/17/17 07:00 15:00 23:00 07:00 15:00 23:00 Intake Total 2059 ml 259 ml 3200 ml 2039 ml Output Total 800 ml Balance 1259 ml 259 ml 3200 ml 2039 ml Intake Oral 800 ml 2200 ml 780 ml IV Total 1259 ml 259 ml 1000 ml 1259 ml Output Urine Total 800 ml # Voids 4 4 # Bowel Movements 0 2 0 left elbow: intact dressing and packing decreased swelling and erythema minimal drainage elbow range of motion is full and painless cultures: MRSA Result Diagram: 12/17/17 0633 12/17/17 0633 Assessment and Plan Assessment and Plan 27 year old male s/p I and D left antecubital abscess POD 2 Plan: packing pulled out dry dressing applied continue with antibiotics based on ID recommendations cleared for discharge from hand surgery. follow up in office in one week Eitan Blake MD Dec 17, 2017 18:12
[2017-12-17] MEDS: REMOVE OLD PATCH T-DERMAL SCH (20:01)
[2017-12-18] VITALS (8 sets, daily range): BP systolic 119–136; BP diastolic 63–78; PULSE 64–84; RESP 16–18; TEMP 97.9–99.7; O2SAT 97–100
[2017-12-18] MEDS ORDERED: PHARMACY ORDERED LAB ONE (01:45)
[2017-12-18] MEDS: VANCOMYCIN INJ 900 MG in SODIUM CHLOR 0.9% 250 ML INJ 250 ML IV SCH (02:21)
[2017-12-18] MEDS: LORazepam 1 MG TAB PO PRN ×3 (02:22→14:42)
[2017-12-18] MEDS: NS + KCL 20 MEQ INJ 1,000 ML IV SCH ×2 (06:39→20:01)
[2017-12-18] MEDS: NICOTINE 21 MG/24 HR PATCH T-DERMAL SCH (08:40)
[2017-12-18] MEDS: FOLIC ACID 1 MG TAB PO SCH (08:40)
[2017-12-18] MEDS: SODIUM CHLORIDE 0.9% FLUSH 10 ML FLUSH IV FLUSH SCH ×2 (08:40→19:58)
[2017-12-18] MEDS: THIAMINE HCL 100 MG TAB PO SCH (08:40)
[2017-12-18] MEDS: MULTIVITAMINS/MINERALS THERAPEUTIC TAB PO SCH (08:40)
[2017-12-18] MEDS: VANCOMYCIN 1,000 MG/NS 250 ML IV SCH ×4 (08:48→18:56)
--- NOTE | 2017-12-18 11:02 | HHI.PR ---
Subjective Remarks Follow-up for cellulitis/abscess Patient looked high during the interview today. I asked him if he took any drugs this morning and he stated no. His nurse told me that he admitted to take meth on Tuesday and drink beer yesterday. Patient confirmed with this to me and admitted it. He stated that his friend brought in for him. There were suspicious activity this morning while patient was in the bathroom. Patient told his nurse that he was showering but the shower was not on and she let him know that he did not have permission to shower. He then stated that he was washing his face in which the sink was not on. Patient rooms was search and he was found to have drugs and drug paraphernalia. Later after patient was seen he had episode of emesis. Discussed case with patient's nurse and charge nurse. Objective Vitals Vital Signs Date Time Temp Pulse Resp B/P (MAP) Pulse Ox O2 Delivery O2 Flow Rate FiO2 12/18/17 08:00 97.9 68 18 132/63 (86) 98 12/18/17 04:00 98.1 75 16 119/71 (87) 100 12/18/17 03:53 64 12/18/17 00:00 98.7 84 18 123/68 (86) 99 12/17/17 23:52 79 12/17/17 20:03 81 12/17/17 20:00 99.3 87 18 127/76 (93) 99 12/17/17 16:00 99.7 75 16 130/68 (88) 99 12/17/17 12:00 74 12/17/17 12:00 98.3 71 14 104/55 (71) 98 I/O 12/17/17 12/17/17 12/17/17 12/18/17 12/18/17 12/18/17 07:00 15:00 23:00 07:00 15:00 23:00 Intake Total 2039 ml 2000 ml 480 ml Balance 2039 ml 2000 ml 480 ml Intake Oral 780 ml 2000 ml 480 ml IV Total 1259 ml # Voids 4 4 # Bowel Movements 0 1 Result Diagram: 12/17/17 0633 12/17/17 0633 Objective Remarks GENERAL: in NAD but looks lethargic and high SKIN: left arm in bandages. sensation of fingers/hand intact. CARDIOVASCULAR: Regular rate and rhythm without murmurs, gallops, or rubs. RESPIRATORY: Breath sounds equal bilaterally. No accessory muscle use. GASTROINTESTINAL: Abdomen soft, non-tender, nondistended. NEURO: Patient able to move all extremities grossly. He is able to hold a conversation. Medications and IVs Current Medications Vancomycin HCl 1000 mg/Sodium Chloride 250 ml @ 250 mls/hr ONCE ONCE IV Last administered on 12/13/17at 18:26; Start 12/13/17 at 18:15; Stop 12/13/17 at 19:14 ; Status DC Ketorolac Tromethamine (Toradol Inj) 30 mg ONCE ONCE IV PUSH Last administered on 12/13/17at 18:27; Start 12/13/17 at 18:15; Stop 12/13/17 at 18:16 ; Status DC Nicotine (Habitrol 14 Mg Patch.24 Hr) 1 patch ONCE ONCE T-DERMAL Last administered on 12/13/17at 18:27; Start 12/13/17 at 18:15; Stop 12/13/17 at 18:16 ; Status DC Pharmacy Profile Note 0 ml @ 0 mls/hr UNSCH OTHER ; Start 12/13/17 at 18:15 Sodium Chloride (NS Flush) 2 ml UNSCH PRN IV FLUSH FLUSH AFTER USING IV ACCESS ; Start 12/13/17 at 18:15 Sodium Chloride (NS Flush) 2 ml BID IV FLUSH Last administered on 12/18/17at 08: 40; Start 12/13/17 at 21:00 Naloxone HCl (Narcan Inj) 0.4 mg UNSCH PRN IV PUSH SEE LABEL COMMENTS; Start at 18:15 Magnesium Hydroxide (Milk Of Magnesia Liq) 30 ml Q12H PRN PO Mild constipation ; Start 12/13/17 at 18:15 Sennosides (Senokot) 17.2 mg Q12H PRN PO Moderate constipation; Start 12/13/17 at 18:15 Bisacodyl (Dulcolax Supp) 10 mg DAILY PRN RECTAL SEVERE CONSITIPATION; Start at 18:15 Lactulose (Lactulose Liq) 30 ml DAILY PRN PO SEVERE CONSITIPATION; Start at 18:15 Vancomycin HCl 750 mg/Sodium Chloride 257.5 ml @ 250 mls/hr Q8H IV Last administered on 12/14/17at 18:20; Start 12/14/17 at 02:00; Stop 12/14/17 at 18:22 ; Status DC Miscellaneous Information SPECIFIC LAB TO BE PHILLIP... ONCE ONCE .XX Last administered on 12/14/17at 17:52; Start 12/14/17 at 17:45; Stop 12/14/17 at 17:46 ; Status DC Lorazepam (Ativan Inj) 1 mg Q4H PRN IV PUSH withdrawal symptoms Last administered on 12/14/17at 17:52; Start 12/13/17 at 23:15; Stop 12/14/17 at 19:39 ; Status DC Pneumococcal Polyvalent Vaccine (Pneumovax-23 Inj) 25 mcg ONCE ONCE IM Last administered on 12/15/17at 09:16; Start 12/15/17 at 10:00; Stop 12/15/17 at 10:01 ; Status DC Influenza Virus Vaccine (Flu (Quadrivalent) Vaccine Inj) 0.5 ml ONCE ONCE IM Last administered on 12/15/17at 09:18; Start 12/15/17 at 10:00; Stop 12/15/17 at 10:01; Status DC Vancomycin HCl 900 mg/Sodium Chloride 259 ml @ 250 mls/hr Q8H IV Last administered on 12/18/17 02:21; Start 12/15/17 at 02:00; Stop 12/18/17 at 08:32 ; Status DC Miscellaneous Information SPECIFIC LAB TO BE DRAWN:VA... ONCE ONCE .XX Last administered on 12/15/17at 17:16; Start 12/15/17 at 17:45; Stop 12/15/17 at 17:46 ; Status DC Folic Acid (Folate) 1 mg DAILY PO Last administered on 12/18/17 08:40; Start 12/15/17 at 09:00; Stop 12/20/17 at 08:59 Thiamine HCl (Vitamin B1) 100 mg DAILY PO Last administered on 12/18/17at 08:40 ; Start 12/15/17 at 09:00 Multivitamins/ Minerals Therapeutic (Theragran M Tab) 1 tab DAILY PO Last administered on 12/18/17at 08:40; Start 12/15/17 at 09:00; Stop 12/20/17 at 08:59 Flumazenil (Romazicon Inj) 0.2 mg Q1M PRN IV PUSH SEE LABEL COMMENTS; Start at 19:45 Lorazepam (Ativan) 1 mg Q4H PRN PO CIWA 8 - 10 Last administered on 12/18/17at 06:37; Start 12/14/17 at 19:45 Lorazepam (Ativan Inj) 1 mg Q4H PRN IV PUSH CIWA 8 - 10; Start 12/14/17 at 19: 45 Lorazepam (Ativan) 2 mg Q2H PRN PO CIWA 11-14 Last administered on 12/17/17at 05 :27; Start 12/14/17 at 19:45 Lorazepam (Ativan Inj) 2 mg Q2H PRN IV PUSH CIWA 11-14; Start 12/14/17 at 19:45 Lorazepam (Ativan Inj) 2 mg Q1H PRN IV PUSH CIWA 15-20 Last administered on at 06:36; Start 12/14/17 at 19:45 Lorazepam (Ativan Inj) 2 mg Q15M PRN IV PUSH CIWA > 20; Start 12/14/17 at 19:45 Haloperidol Lactate (Haldol Inj) 2 mg Q15M PRN IM SEE LABEL COMMENTS; Start at 19:45 Potassium Chloride/Sodium Chloride 1,000 ml @ 125 mls/hr Q8H IV Last administered on 12/18/17at 06:39; Start 12/15/17 at 08:00 Acetaminophen (Tylenol) 650 mg Q6H PRN PO PAIN SCALE 1 TO 2; Start 12/15/17 at 08:00 Ketorolac Tromethamine (Toradol Inj) 15 mg Q6H PRN IV PUSH Pain 3-5; if unable to take PO Last administered on 12/17/17at 08:20; Start 12/15/17 at 08:00; Stop 12/20/17 at 07:59 Ketorolac Tromethamine (Toradol Inj) 30 mg Q6H PRN IV PUSH Pain 6-10;if unable to take PO Last administered on 12/17/17at 20:00; Start 12/15/17 at 08:00; Stop 12/20/17 at 07:59 Lidocaine HCl (Xylocaine 2% Inj) 50 ml STK-MED ONCE .ROUTE Last administered on 12/15/17at 20:23; Start 12/15/17 at 19:24; Stop 12/15/17 at 19:25; Status DC Bupivacaine HCl (Marcaine Pf 0.5% Inj) 30 ml STK-MED ONCE .ROUTE ; Start at 19:25; Stop 12/15/17 at 19:26; Status DC Mupirocin (Bactroban 2% Oint) 22 applic STK-MED ONCE .ROUTE ; Start 12/15/17 at 19:25; Stop 12/15/17 at 19:26; Status DC Acetaminophen 0 ml @ As Directed STK-MED ONCE IV ; Start 12/15/17 at 19:33; Stop 12/15/17 at 19:34; Status DC Fentanyl Citrate (fentaNYL INJ) 100 mcg STK-MED ONCE .ROUTE ; Start 12/15/17 at 19:33; Stop 12/15/17 at 19:34; Status DC Midazolam HCl (Versed Inj) 2 mg STK-MED ONCE .ROUTE ; Start 12/15/17 at 19:33; Stop 12/15/17 at 19:34; Status DC Ketamine HCl (Ketalar Inj) 500 mg STK-MED ONCE .ROUTE ; Start 12/15/17 at 19:34 ; Stop 12/15/17 at 19:35; Status DC Hydromorphone HCl (Dilaudid Pf Inj) 2 mg STK-MED ONCE .ROUTE ; Start 12/15/17 at 19:34; Stop 12/15/17 at 19:35; Status DC Neomycin/Polymyxin (Neosporin G.u. Irr) 1 ml STK-MED ONCE .ROUTE ; Start at 19:35; Stop 12/15/17 at 19:36; Status DC Miscellaneous Information SPECIFIC LAB TO BE DRAWN: VANCO TROUGH DATE TO BE DR... ONCE ONCE .XX Last administered on 12/16/17at 17:45; Start 12/16/17 at 17 :45; Stop 12/16/17 at 17:46; Status DC Neomycin/Polymyxin (Neosporin G.u. Irr) 1 ml ONCE ONCE IRRIGATION Last administered on 12/15/17at 20:23; Start 12/15/17 at 20:23; Stop 12/15/17 at 21:15 ; Status DC Cefazolin Sodium (Ancef Inj) 2,000 mg ONCE ONCE IV Last administered on at 20:38; Start 12/15/17 at 20:23; Stop 12/15/17 at 20:38; Status DC Miscellaneous Information ALL NURSING DEPARTME... UNSCH PRN .XX SEE LABEL COMMENTS; Start 12/15/17 at 21:00; Stop 12/16/17 at 20:59; Status DC Morphine Sulfate (Morphine Inj) 2 mg STK-MED ONCE .ROUTE ; Start 12/15/17 at 21: 24; Stop 12/15/17 at 21:25; Status DC Nicotine (Habitrol 21 Mg Patch.24 Hr) 1 patch DAILY T-DERMAL Last administered on 12/18/17at 08:40; Start 12/16/17 at 10:15 Miscellaneous Information 1 HS T-DERMAL Last administered on 12/17/17at 20:01; Start 12/16/17 at 21:00 Miscellaneous Information SPECIFIC LAB TO BE PHILLIP... ONCE ONCE .XX Last administered on 12/18/17at 01:45; Start 12/18/17 at 01:45; Stop 12/18/17 at 01:54 ; Status DC Vancomycin HCl 1000 mg/Sodium Chloride 250 ml @ 250 mls/hr Q8H IV Last administered on 12/18/17at 08:48; Start 12/18/17 at 10:00 Miscellaneous Information SPECIFIC LAB TO BE PHILLIP... ONCE ONCE .XX ; Start 12/19 at 01:45; Stop 12/19/17 at 01:46 Ondansetron HCl (Zofran Inj) 4 mg Q6HR PRN IV PUSH nausea/emesis Last administered on 12/18/17at 11:48; Start 12/18/17 at 12:00 A/P Problem List: (1) Sepsis ICD Code: A41.9 - Sepsis, unspecified organism Status: Acute (2) Cellulitis of left arm ICD Code: L03.114 - Cellulitis of left upper limb (3) IVDU (intravenous drug user) ICD Code: F19.90 - Other psychoactive substance use, unspecified, uncomplicated Assessment and Plan Mr. Alvarado is a pleasant 27-year-old male with a history of IV drug use who presented to the emergency department on 12/13/2017 due to left arm swelling, pain, fever and chills. He denies using left arm for IV drug use recently. He has been using IV drugs for almost 8 years. Sepsis (tachycardia, resp rate 22, WBC elevated to 16.8K, known infection cellulitis). -See treatment as above. He was placed on IV antibiotics and given IV fluids. Resolved. Left arm cellulitis with left antecubital fossa abscess -Ultrasound indicates fluid collection in the antecubital fossa. -Status post Incision and drainage antecubital fossa abscess, left elbow -continue vancomycin for now. Keep trough level between 15-20. -blood cultures negative so far. -ID consulted and managing antibiotics. -Final cultures are back. Cultures growing MRSA. Patient cleared by hand surgeon to be discharged. Pending final recommendations from infectious disease will notify. IVDU Tobacco abuse Alcohol abuse -Patient is actively using while in the hospital. He was discharged by security due to change in behavior and found to have drugs and drug paraphernalia. Extensive education was given to patient that his active drug abuse can lead to . Patient stated that he understands. Emesis -Patient only had one episode we will give supportive care. Discharge Planning Once patient emesis resolved and the unknown drug that he was taken is out of his system and final antibiotic recommendations from infectious disease are given patient can be discharged. Patient is no longer able to have visitors. Problem Qualifiers (1) Sepsis: Qualified Codes: A41.9 - Sepsis, unspecified organism Vangie Osuna MD Dec 18, 2017 11:02
[2017-12-18] MEDS: ONDANSETRON HCL 4 MG/2 ML VIAL IV PUSH PRN ×2 (11:48→19:58)
[2017-12-18] MEDS: KETOROLAC TROMETHAMINE 30 MG/ML (IVP) VIAL IV PUSH PRN (14:42)
[2017-12-18] MEDS: LORazepam 2 MG TAB PO PRN ×2 (18:54→22:53)
[2017-12-18] MEDS: REMOVE OLD PATCH T-DERMAL SCH (19:58)
[2017-12-19] MEDS: NS + KCL 20 MEQ INJ 1,000 ML IV SCH ×2 (01:36→08:44)
[2017-12-19] MEDS: LORazepam 2 MG TAB PO PRN ×2 (01:37→05:59)
[2017-12-19] MEDS: VANCOMYCIN 1,000 MG/NS 250 ML IV SCH ×4 (01:37→09:56)
[2017-12-19] MEDS ORDERED: PHARMACY ORDERED LAB ONE (01:45)
[2017-12-19] MEDS: KETOROLAC TROMETHAMINE 30 MG/ML (IVP) VIAL IV PUSH PRN (05:59)
[2017-12-19] MEDS: ONDANSETRON HCL 4 MG/2 ML VIAL IV PUSH PRN (05:59)
[2017-12-19 07:18] LABS: CREATININE 0.69 MG/DL (0.60-1.30)
[2017-12-19 08:00] VITALS: BP 124/66; PULSE 65; RESP 16; TEMP 98.1; O2SAT 99
[2017-12-19] MEDS ORDERED: BACT800T5 PO (08:32)
--- NOTE | 2017-12-19 08:33 | HHI.DCPOC ---
Discharge Care Plan Diagnosis: (1) abscess antecubital fossa left side Goals to Promote Your Health * To prevent worsening of your condition and complications * To maintain your health at the optimal level Directions to Meet Your Goals Take your medications as prescribed Follow your dietary instruction Follow activity as directed Keep your appointments as scheduled Take your immunizations and boosters as scheduled If your symptoms worsen call your PCP, if no PCP go to Urgent Care Center or Emergency Room Smoking is Dangerous to Your Health. Avoid second hand smoke Call the 24-hour hour crisis hotline for domestic abuse at Vangie Osuna MD Dec 19, 2017 08:33
--- NOTE | 2017-12-19 08:34 | HHI.DS ---
Discharge Summary Admission Date Dec 13, 2017 at 18:07 Discharge Date: Dec 19, 2017 Admitting Diagnosis cellulitis, IVDA (1) Sepsis ICD Code: A41.9 - Sepsis, unspecified organism Diagnosis: Principal Status: Acute (2) IVDU (intravenous drug user) ICD Code: F19.90 - Other psychoactive substance use, unspecified, uncomplicated Diagnosis: Principal (3) abscess antecubital fossa left side Diagnosis: Principal Procedures See hospital course. Brief History - From Admission Mr. Alvarado is a pleasant 27-year-old male with a history of IV drug use who presented to the emergency department on 12/13/2017 due to left arm swelling and pain. His symptoms started approximately 5 days prior to this admission. He reports using IV heroin for almost 8 years. However he has not used left arm for IV drugs in some time. His recent use was on his right arm. He reports subjective fever and chills at home. Some nausea but no vomiting. No chest pain, shortness of breath. No abdominal pain, no changes in bowel habit or bladder habits. CBC/BMP: 12/17/17 0633 12/19/17 0550 Significant Findings Laboratory Tests Test 12/16/17 17:40 12/17/17 06:33 12/18/17 01:45 12/19/17 01:30 Vancomycin Level Trough 11.1 MCG/ML (5.0-10.0) Red Blood Count 4.00 MIL/MM3 (4.50-5.90) Hemoglobin 11.6 GM/DL (13.0-17.0) Hematocrit 33.9 % (39.0-51.0) Mean Platelet Volume 6.4 FL (7.0-11.0) Blood Urea Nitrogen 6 MG/DL (7-18) Calcium Level 8.3 MG/DL (8.5-10.1) Chloride Level 109 MEQ/L (98-107) Test 12/19/17 05:50 Imaging Last Impressions Chest X-Ray 12/13/17 1310 Signed Impressions: Service Date/Time: Wednesday, December 13, 2017 13:38 - CONCLUSION: 1. S. shaped scoliosis of the thoracolumbar spine. 2. No acute cardiopulmonary process to explain current clinical symptoms. Lester Mendoza MD Upper Extremity Ultrasound 12/13/17 0000 Signed Impressions: Service Date/Time: Wednesday, December 13, 2017 18:44 - CONCLUSION: 1. Phlegmonous mass/complex fluid collection in the left antecubital fossa with surrounding increased vascularity. Jatin Romero MD Elbow X-Ray 12/13/17 0000 Signed Impressions: Service Date/Time: Wednesday, December 13, 2017 13:43 - CONCLUSION: Negative exam. Lester Mendoza MD PE at Discharge GENERAL: in NAD SKIN: Left antecubital without any erythema or discharge. Incision suture in place and dry clean and intact. CARDIOVASCULAR: Regular rate and rhythm without murmurs, gallops, or rubs. RESPIRATORY: Breath sounds equal bilaterally. No accessory muscle use. GASTROINTESTINAL: Abdomen soft, non-tender, nondistended. NEURO: AAO O 4. Patient able to hold a normal conversation. He is back to his baseline. Pt update on day of discharge Follow-up for left antecubital fossa abscess status post I&D Patient has no complaints. He remains afebrile. Denies any pain. He has not vomited since yesterday. Denies any nausea or vomiting. I spoke to Dr. Fernandez, infectious disease yesterday in regards to antibiotics choice and she stated that patient can go home on either Bactrim or doxycycline for a total of 14 days of antibiotics. Discussed case with patient's nurse. Hospital Course Mr. Alvarado is a 27-year-old male with a history of IV drug use who presented to the emergency department on 12/13/2017 due to left arm swelling , pain, fever and chills. Sepsis (tachycardia, resp rate 22, WBC elevated to 16.8K, known infection cellulitis). -Patient initially presented with sepsis in which she was put on IV fluids and IV antibiotics. Sepsis most likely secondary to left antecubital fossa abscess. This resolved quickly. Left antecubital fossa abscess -Initially cellulitis was noted by the admitting physician but this resolved quickly. -Ultrasound indicates fluid collection in the antecubital fossa. -Status post Incision and drainage antecubital fossa abscess, left elbow -Patient was on IV vancomycin pending wound cultures. Wound cultures grew MRSA. He was discharged on Bactrim to complete total of 14 days of antibiotics. IVDU Tobacco abuse Alcohol abuse -Patient was actively using while in the hospital which he admitted that he was using modified remains on Tuesday. He had a change in behavior the day before discharge so security search his room due to change in behavior and found to have drugs and drug paraphernalia. Extensive education was given to patient that his active drug abuse can lead to . Patient stated that he understands. Emesis -Patient only had one episode secondary to drug use during his hospitalization. Supportive care was given and this resolved quickly. Pt Condition on Discharge: Stable Discharge Disposition: Discharge Home Discharge Time: <= 30 minutes Discharge Instructions DIET: Follow Instructions for: As Tolerated, No Restrictions Activities you can perform: Regular-No Restrictions Follow up Referrals: Hand Surgery - 1 Week with Eitan Blake MD PCP Follow-up - 1 Week with KARMEN PEREYRA New Medications: Sulfamethoxazole-Trimethoprim (Bactrim DS) 800-160 Mg Tab 1 TAB PO BID for Infection, #18 TAB 0 Refills Vangie Osuna MD Dec 19, 2017 08:34
[2017-12-19] MEDS: SODIUM CHLORIDE 0.9% FLUSH 10 ML FLUSH IV FLUSH SCH (09:00)
[2017-12-19] MEDS: NICOTINE 21 MG/24 HR PATCH T-DERMAL SCH (09:55)
[2017-12-19] MEDS: THIAMINE HCL 100 MG TAB PO SCH (09:56)
[2017-12-19] MEDS: MULTIVITAMINS/MINERALS THERAPEUTIC TAB PO SCH (09:56)
[2017-12-19] MEDS: FOLIC ACID 1 MG TAB PO SCH (09:56)
[2017-12-20] MEDS ORDERED: PHARMACY ORDERED LAB ONE (01:45)
== END 2017-12-19 11:49 | disposition home or self-care (01) | DRG 872 ==
LOC: NED 12:25 → NEDA 18:07 → NEDH 22:10 → N07B 12-14 15:34
PROVIDERS: ADMIT Family Medicine; ATTEND Family Medicine
PROC: 0J9H0ZX Drainage of Left Lower Arm Subcutaneous Tissue and Fascia, Open Approach, Diagnostic (ICD-10-PCS; principal; 2017-12-15 20:02)
DX: A41.9 Sepsis, unspecified organism (principal); F11.20 Opioid dependence, uncomplicated; L03.114 Cellulitis of left upper limb; L02.414 Cutaneous abscess of left upper limb; B95.62 Methicillin resistant Staphylococcus aureus infection as the cause of diseases classified elsewhere; F10.10 Alcohol abuse, uncomplicated; F17.210 Nicotine dependence, cigarettes, uncomplicated; B19.20 Unspecified viral hepatitis C without hepatic coma; R11.2 Nausea with vomiting, unspecified; Z23 Encounter for immunization
CPT/HCPCS: 71046; 73080; 76882; 80048; 80053; 80202; 82565; 83605; 85025; 85027; 85610; 85730; 86403; 87015; 87040; 87070; 87116; 87147; 87186; 87205; 87206; 90686; 90732; J0131; J0690; J1100; J1170; J1885; J2060; J2250; J2270; J2405; J3010; J3370; J3480; J7050; J7120; Q2038